=== PATIENT | female | born 1955 | race Caucasian/White ===

== ENCOUNTER 2020-05-26 07:56 | Outpatient (CLI) | payer MEDICARE, OTHER, SELFPAY ==
--- NOTE | ~2020-05-26 | US_ITS ---
EXAMINATION:US venous doppler LE LT INDICATION:Left leg swelling TECHNIQUE: Multiple grayscale, color flow and Doppler images of the left lower extremity deep venous systems were obtained and reviewed. COMPARISON:No prior studies for comparison. FINDINGS: The common femoral, superficial femoral and popliteal veins demonstrate normal respiratory variation, augmentation and compressibility. Color flow is also seen within the posterior tibial, pe roneal, greater saphenous and profunda veins. IMPRESSION: 1: No lower extremity deep venous thrombosis. Reviewed, dictated and finalized at location A. HOUSE MANAGER
== END 2020-05-26 07:57 | disposition home or self-care (01) ==
PROVIDERS: PCP Family Medicine; Visit Provider Family Medicine
DX: M79.89 Other specified soft tissue disorders (principal)
CPT/HCPCS: 93971

== ENCOUNTER 2020-06-06 06:39 | Outpatient (NON) | payer MEDICARE, OTHER, SELFPAY ==
[2020-06-06 19:14] LABS: SARS-CoV-2 RNA PCR Negative
== END 2020-06-06 06:40 ==
LOC: ANHCOVIDDT 06:39
PROVIDERS: PCP Family Medicine; Visit Provider Family Medicine
DX: R09.81 Nasal congestion (principal); R53.83 Other fatigue; Z20.828 Contact with and (suspected) exposure to other viral communicable diseases
CPT/HCPCS: 87635; C9803; U0003

== ENCOUNTER 2022-06-03 10:29 | Outpatient (CLI) | payer MEDICARE, OTHER, SELFPAY ==
--- NOTE | ~2022-06-03 | DEXA_ITS ---
Bone Density Report Name: JEFFREY THOMAS Age: 66 Sex: Female Ethnicity: White Date of : 1955 Indication: postmenopausal; screening for osteoporosis; height loss; Referring Provider: CARSON HUANG Study: Bone densitometry was performed. Exam Date: June 03, 2022 Accession number: [id number] Bone Density: Region BMD T-score Z-score Classification AP Spine(L1-L4) 0.827 -2.0 0.0 Osteopenia Femoral Neck (Left) 0.728 -1.1 0.6 Osteopenia Total Hip (Left) 0.795 -1.2 0.2 Osteopenia Femoral Neck (Right) 0.776 -0.7 1.0 Normal Total Hip (Right) 0.798 -1.2 0.2 Osteopenia Total Hip Mean 0.796 -1.2 0.2 Osteopenia World Health Organization criteria for BMD impression classify patients as: Normal (T-score at or above -1.0), Osteopenia (T-score between -1.0 and -2.5), or Osteoporosis (T-score at or below -2.5). 10-year Fracture Risk(1): Major Osteoporotic Fracture 8.7% Hip Fracture 0.8% Reported Risk Factors: [place] (), Neck BMD=0.728, BMI=28.2 (1) FRAX(R) Version 3.08. Fracture probability calculated for an untreated patient. Fracture probability may be lower if the patient has received treatment. Clinical Information Provided by Patient: Has used the following medications: Vitamin D, Calcium Patient maximum height was 62 Menopause Age: 49 Drinks caffeinated beverages Onset of menses at age 10 Number of children 2 Impression: The patient has low bone mass, based on the Total Spine T-score. The patient has an estimated ten-year risk of hip fracture of 0.8% and an estimated ten-year risk of major fracture of 8.7%, based on the WHO FRAX algorithm. Discussion: BONE DENSITY IS LOW AT ONE OR MORE SKELETAL SITES. This patient's lowest T-score is low at one or more skeletal sites. It meets the World Health Organization's (WHO) criteria for ?low bone mass? (T-score between -1.0 and -2.5). The patient's 10-year risk of fracture as calculated by FRAX is less than the threshold where pharmacological therapy is recommended by the National Osteoporosis Foundation (NOF). However, all treatment decisions require clinical judgment and consideration of individual patient factors, including patient preferences, comorbidities, previous drug use, risk factors not captured in the FRAX model (e.g., frailty, falls, vitamin D deficiency, increased bone turnover, interval significant decline in bone density) and possible under or overestimation of fracture risk by FRAX. The patient should follow a healthful lifestyle (good nutrition with adequate calcium and vitamin D, and appropriate weight-bearing exercise). Follow-Up: Consider repeating this study in 2 to 3 years to reassess this patient's status, or sooner if there is some new clinical indication. Reported by: [facility] on 06/03/2022
== END 2022-06-03 10:30 | disposition home or self-care (01) ==
LOC: ANHIMG 10:30
PROVIDERS: PCP Family Medicine; Visit Provider Physician Assistant
DX: Z78.0 Asymptomatic menopausal state (principal); Z13.820 Encounter for screening for osteoporosis; M85.88 Other specified disorders of bone density and structure, other site; M85.852 Other specified disorders of bone density and structure, left thigh; M85.851 Other specified disorders of bone density and structure, right thigh
CPT/HCPCS: 77080

== ENCOUNTER → 2022-07-21 16:04 | Outpatient (CLI) | payer MEDICARE, OTHER, SELFPAY ==
--- NOTE | ~2022-07-21 | CT_ITS ---
EXAMINATION: CT abdomen pelvis w con DATE: 07/21/2022 16:37 INDICATION: Abdominal pain for 2 to 3 months, worsening. TECHNIQUE: Computed tomography (CT) of the abdomen and pelvis was performed with 100 CC Omnipaque 350 intravenous contrast. Automated exposure control and iterative reconstruction technique were employe d. Exam dose: 661.82 mGy-cm total exam DLP. COMPARISON: None. FINDINGS: There is bronchiectasis the base of the lingula and particularly left lower lobe. Minimal d ependent atelectasis in the lower lung zones. Cardiomegaly. Right ventricular pacemaker lead. No pericardial or pleural effusion. Small sliding hiatal hernia. Diffuse hepatic steatosis. 8 mm hepatic cyst. Probable extremely small lateral segment left hepatic c yst. The gallbladder appears unremarkable. No bile duct or pancreatic duct dilatation. No pancreatic mass lesion or calcification. Normal splenic size. Normal morphology of the adrenal glands. No renal mass lesion probable 3.5 mm left renal cyst. No urinary tract calculus or hydroureteronephro sis is detected. The urinary bladder, uterus and adnexal areas are unremarkable. Normal caliber of the abdominal aorta. No intraperitoneal or retroperitoneal or pelvic mass lesion or adenopathy or ascites is noted. Diverticulosis of the colon; no evidence of diverticulitis. Normal appendix. No bowel obstruction, dusty wel wall thickening, pneumatosis or intraperitoneal free air. Large osteosclerotic lesion of right ilium and small osseous chronic lesions of the proximal right fe mur are likely bone islands. No suspicious osteolytic or osteoblastic lesions are noted otherwise. Small fat-containing umbilical hernia. IMPRESSION: Small sliding hiatal hernia Hepatic steatosis Small hepatic cysts, 3.5 mm left renal cyst Diverticulosis of the colon; no evidence of diverticulitis Normal appendix Reviewed, dictated and finalized at Location A. Reviewed, dictated and finalized at location L. L FLOORING INSTALLER
[2022-07-21 16:28] LABS: Estimated Glomerular Filt Rate > 60
== END ==
PROVIDERS: PCP Family Medicine; Visit Provider Family Medicine
DX: R10.9 Unspecified abdominal pain (principal); R10.2 Pelvic and perineal pain; K44.9 Diaphragmatic hernia without obstruction or gangrene; K76.0 Fatty (change of) liver, not elsewhere classified; K57.30 Diverticulosis of large intestine without perforation or abscess without bleeding
CPT/HCPCS: 74177; Q9967

== ENCOUNTER 2023-05-06 11:21 | Emergency (ER) | payer MEDICARE, OTHER, SELFPAY ==
[2023-05-06 11:30] VITALS: BP 119/58; PULSE 63; RESP 16; TEMP 36.8; O2SAT 98
--- NOTE | 2023-05-06 11:47 | ED.URI ---
HPI - URI/Sore Throat General Chief Complaint: Upper Respiratory Infection Stated Complaint: SINUS CONGESTION Source: patient, family and RN notes reviewed History of Present Illness HPI Narrative: 67 yo F presents to urgent care with visitor at side. Pt states she has been having congestion and ear fullness since Monday. Pt states she can no longer hear out of her left ear. Pt states she felt worse on Monday and started doing [place] Pots on Monday. Denies any fevers, chills, sore throat, N/V/D, chest pain, or SOB. Related Data Home Medications Medication Instructions Recorded Confirmed melatonin 5 mg tablet 2.5 mg PO DAILY 07/20/20 05/06/23 metoprolol tartrate 50 mg tablet 50 mg PO BID 08/27/21 05/06/23 sotalol 80 mg tablet 120 mg PO BID 04/29/22 05/06/23 warfarin 2 mg tablet 2 mg PO DAILY 04/29/22 05/06/23 calcium carbonate 600 mg calcium 600 mg PO BID 07/21/22 05/06/23 (1,500 mg) tablet Allergies Allergy/AdvReac Type Severity Reaction Status Date / Time erythromycin base Allergy Unknown Other Verified 05/06/23 11:31 epinephrine Allergy Other Verified 05/06/23 11:31 cefdinir AdvReac Unknown diarrhea Verified 05/06/23 11:31 Review of Systems Review of Systems: Pertinent positives and pertinent negatives per HPI. [facility] Past Medical History Medical History A-fib Menieres disease MVP (mitral valve prolapse) Pacemaker (~2014) Surgical History Surgical History Heart valve replaced 07/1999 Hx of tonsillectomy (~1961) Family History Family History Mother Diabetes mellitus Father Hypertension Social History Social History Smoking status: Never smoker Alcohol intake: current Alcohol use details: rarely Substance use: never Substance use type: does not use Lack of Transportation: No Lack of Food: Never True Current Housing: I Have Housing Concerned About Future Housing: No Difficulty Paying Gas/Electric Bills: No Difficulty Paying for Meds: No Currently Unemployed: No Education: Bachelor's Degree Difficulty w/ Childcare or Family Care: No Living arrangements: with family Occupation/Education: retired Gender identity (if verbalized by the patient): Female Sexual Orientation (if Verbalized by the Patient): Straight or Heterosexual Agree to blood products: Yes Comments At the time of my signature, I reviewed and agree with the nursing past medical, surgical, social, and family history. There is no relevant family history pertinent to the patient complaint. Exam Narrative: GENERAL: This is a well-nourished, well-developed patient, in no apparent distress. HEAD: normocephalic, atraumatic. EYES: Sclera clear/white. Vision is grossly intact. EARS: External ears normal, Left sided cerumen impaction. Right TMs normal without perforation. Hearing grossly intact. NOSE: External nose normal with no obvious nasal discharge, nares without redness, no rhinorrhea. THROAT: Mucous membranes moist, posterior pharynx clear. NECK: Neck supple, non-tender without lymphadenopathy, masses or thyromegaly. CARDIOVASCULAR: Regular rate and rhythm without murmurs, gallops, or rubs. RESPIRATORY: Clear to auscultation. Breath sounds equal bilaterally. No wheezes, rales, or rhonchi. SKIN: warm, intact with no suspicious lesions or rash, good texture and turgor. NEURO: awake, alert, and oriented to person, place and time. There were no obvious focal neurologic abnormalities. Course Course Level of Care: Express Care Visit Vital Signs Vital signs: Vital Signs Temperature 98.3 F 05/06/23 11:30 Pulse Rate 63 05/06/23 11:30 Respiratory Rate 16 05/06/23 11:30 Blood Pressure 119/58 L 05/06/23 11:30 Pulse Oximetry 98 05/06/23
== END 2023-05-06 12:28 | disposition home or self-care (01) ==
PROVIDERS: Emergency Provider Nurse Practitioner Family; PCP Family Medicine
DX: J06.9 Acute upper respiratory infection, unspecified (principal); H61.22 Impacted cerumen, left ear; I48.91 Unspecified atrial fibrillation; I34.1 Nonrheumatic mitral (valve) prolapse; Z95.0 Presence of cardiac pacemaker; Z79.01 Long term (current) use of anticoagulants; Z95.2 Presence of prosthetic heart valve
CPT/HCPCS: 69209; 99213; A9270; G0463

== ENCOUNTER 2023-07-26 14:11 | Outpatient (CLI) | payer MEDICARE, SELFPAY ==
--- NOTE | 2023-07-26 | ECG_ITS ---
Measurements Intervals Irons Rate: 65 P: 156 MD: 265 QRS: -13 QRSD: 69 T: 24 QT: 421 QTc: 439 Interpretive Statements ELECTRONIC ATRIAL PACEMAKER DELAYED PRECORDIAL R/S TRANSITION LOW QRS VOLTAGE IN PRECORDIAL LEADS BORDERLINE ST-T WAVE ABNORMALITY- DIFFUSE LEADS BORDERLINE ECG NO PREVIOUS ECG AVAILABLE FOR COMPARISON Electronically Signed On 07-26-2023 14:45:54 PARTS SALESMAN by Elder Rodriguez D.O.
== END 2023-07-26 14:12 | disposition home or self-care (01) ==
PROVIDERS: PCP Family Medicine
DX: Z79.899 Other long term (current) drug therapy (principal); R94.31 Abnormal electrocardiogram [ECG] [EKG]
CPT/HCPCS: 93005

== ENCOUNTER 2023-10-04 10:52 | Outpatient (CLI) | payer MEDICARE, SELFPAY | END 2023-10-04 10:53 | disposition home or self-care (01) | LOC: ANHAUDASC 10:53 | PROVIDERS: PCP Family Medicine; Visit Provider Otolaryngology | DX: H90.3 Sensorineural hearing loss, bilateral (principal) | CPT/HCPCS: 92557; 92567 ==

== ENCOUNTER 2024-03-23 08:57 | Emergency (ER) | payer MEDICARE, SELFPAY ==
--- NOTE | 2024-03-23 09:07 | ED.URI ---
HPI - URI/Sore Throat General Chief Complaint: Upper Respiratory Infection Stated Complaint: +Covid, tested positive last night Time Seen by Provider: 03/23/24 09:33 Source: patient and RN notes reviewed Mode of arrival: ambulatory Limitations: no limitations History of Present Illness HPI Narrative: 5-year-old female with history pacemaker and artificial heart valve AFib presents with concern for positive home COVID test. She reports she started having symptoms on , headache, sinus pain. Reports her doctor called her and amoxicillin for a sinus infection yesterday, she took 2 doses and then had a positive COVID test she stop taking the antibiotic. She denies shortness of breath. MD elicited complaint: fever and cough Related Data Home Medications Medication Instructions Recorded Confirmed melatonin 5 mg tablet 2.5 mg PO DAILY 07/20/20 03/22/24 metoprolol tartrate 50 mg tablet 50 mg PO BID 08/27/21 03/22/24 sotalol 80 mg tablet 120 mg PO BID 04/29/22 03/22/24 warfarin 2 mg tablet 2 mg PO DAILY 04/29/22 03/22/24 calcium carbonate 600 mg PO BID 07/21/22 03/22/24 Allergies Allergy/AdvReac Type Severity Reaction Status Date / Time erythromycin base Allergy Unknown Other Verified 03/23/24 09:20 epinephrine Allergy Other Verified 03/23/24 09:20 cefdinir AdvReac Unknown diarrhea Verified 03/23/24 09:20 Review of Systems Review of Systems: CONSTITUTIONAL: Denies malaise, chills, sweats, or fever. EYES: Denies visual changes, redness, or discharge. ENT: Reports rhinorrhea, congestion, sinus pain CARDIOVASCULAR: Denies chest pain, palpitations, or edema. RESPIRATORY: Reports cough. Denies dyspnea. GASTROINTESTINAL: Denies abdominal pain, nausea, vomiting, diarrhea SKIN: Denies rash or itching. MUSCULOSKELETAL: Denies myalgia. NEUROLOGIC: Denies headache. All systems reviewed & are unremarkable except as noted in HPI and below PMFSH Past Medical History Medical History A-fib Menieres disease MVP (mitral valve prolapse) Pacemaker (~2014) Surgical History Surgical History Heart valve replaced 07/1999 Hx of tonsillectomy (~1961) Family History Family History Mother Diabetes mellitus Father Hypertension Social History Social History Smoking status: Never smoker Alcohol intake: current Alcohol use details: rarely Substance use: never Substance use type: does not use Lack of Transportation: No Lack of Food: Never True Current Housing: I Have Housing Concerned About Future Housing: No Difficulty Paying Gas/Electric Bills: No Difficulty Paying for Meds: No Currently Unemployed: No Education: Bachelor's Degree Difficulty w/ Childcare or Family Care: No Living arrangements: with family Occupation/Education: retired Gender identity (if verbalized by the patient): Female Sexual Orientation (if Verbalized by the Patient): Straight or Heterosexual Agree to blood products: Yes Comments At time of signature, agree with nursing past medical, surgical, social and family history. There is no relevant family history pertinent to the presenting complaint Exam Narrative: GENERAL: Well-appearing, well-nourished, and in no acute distress. HEAD: Normocephalic EYES: PERRLA, conjunctivae clear ENT: Nares clear. Mucous membranes moist. TM pearly oliva with dull light reflex bilaterally; no tragal tenderness. Oropharynx not erythematous without lesions. Tonsils not enlarged and without exudate, no drooling, no hoarseness, no trismus, uvula midline. NECK: Supple. No lymphadenopathy CHEST: Clear to auscultation, breath sounds equal. No wheezing, rhonchi, rales, or stridor. No respiratory distress, speaks in full sentences. HEART: Regular rate and rhythm. No murmur heard.
[2024-03-23 09:16] VITALS: BP 128/63; PULSE 78; RESP 16; TEMP 37.6; O2SAT 99
== END 2024-03-23 09:51 | disposition home or self-care (01) ==
PROVIDERS: Emergency Provider Nurse Practitioner; PCP Family Medicine
DX: U07.1 COVID-19 (principal); I48.91 Unspecified atrial fibrillation; I34.1 Nonrheumatic mitral (valve) prolapse; Z95.0 Presence of cardiac pacemaker; Z95.2 Presence of prosthetic heart valve; Z79.01 Long term (current) use of anticoagulants
CPT/HCPCS: 99213; G0463

== ENCOUNTER 2024-07-11 11:34 | Outpatient (CLI) | payer MEDICARE, SELFPAY ==
--- NOTE | 2024-07-11 | ECG_ITS ---
Test Date: 2024-07-11 12:16:37 Measurements Intervals Honor Rate: 69 P: 160 PA: 284 QRS: -15 QRSD: 72 T: -6 QT: 396 QTc: 427 Interpretive Statements ELECTRONIC ATRIAL PACEMAKER LOW QRS VOLTAGE IN PRECORDIAL LEADS [QRS DEFLECTION < 1.0 mV IN CHEST LEADS] NONSPECIFIC T-WAVE ABNORMALITY No previous ECG available for comparison Electronically Signed On 07-12-2024 16:35:32 ENGAGEMENT MANAGER by Brenden Velázquez M.D.
== END 2024-07-11 11:35 | disposition home or self-care (01) ==
PROVIDERS: PCP Family Medicine
DX: Z79.899 Other long term (current) drug therapy (principal); Z95.0 Presence of cardiac pacemaker
CPT/HCPCS: 93005

== ENCOUNTER 2024-10-01 10:59 | Outpatient (CLI) | payer MEDICARE, SELFPAY ==
--- NOTE | ~2024-10-01 | XR_ITS ---
XR chest 2V 10/01/2024 11:19 Indication: Cough Procedure: 2 view chest Comparison: No prior studies for comparison. Findings: Status post median sternotomy. Pacemaker leads are in expected position. There is atheroscl erosis of the aorta. There is a mass in the upper posterior chest on lateral view likely correspondin g to aortic arch, although further evaluation with CT chest recommended to exclude underlying mass or aneurysm. No focal pneumonia, pleural effusion or pneumothorax. 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 Reviewed, dictated and finalized at location A. Impression: 1: Mass in the upper posterior chest on lateral view likely corresponding to ao rtic arch, although further evaluation with CT chest recommended to exclude und erlying mass or aneurysm.
--- OUTSIDE RECORDS SUMMARY | 2024-10-01 12:18 | XMS_ITS | Clinical Summary ---
Author Organization [facility] [employer] Address [address] [place] [address] Care Team Providers Care Home Energy Rater Name Role Phone Unavailable Primary Care Provider Unavailabl e Source Comments [facility] [employer],non-owned Affiliates and Associated Physician Practices is amultiple site organization consisting of ambulatory clinics and hospital sitesin [place], [place], [place] and [place]. This disclosure is being madepursuant to the Care Everywhere program and may not contain all information available regarding this patient. Last updated 18.[facility] [employer] Social History Tobacco Use Types Packs/Day Years Used Date Smoking Tobacco: Never Assessed Sex and Gender Information Value Date Recorded Sex Assigned at Not on file Gender Identity Not on file Sexual Orientation Not on file Plan of Treatment Health Maintenance Due Date Last Done Comments BONE DENSITY TESTING 1955 COLOGUARD (AGES 45-75) - COL ON CA SCREENING 1955 COLON MONITORING 1955 COLONOSCOPY - COLON CA SCREENING 1955 CT COLONOGRAPHY - COLON CA SCREENING 1955 Colorectal Cancer Screening 1955 FIT - COLON CA SCREENING 1955 FLEX SIG - COLON CA SCREENING 1955 LIPID TESTING 1955 MAMMOGRAM 1955 HEPATITIS C SCREENING 12/22/1971 DTAP/TDAP/TD VACCINES (1 - Tdap) 1972 PNEUMOCOCCAL VACCINE 50+ (1 of 1 - PCV) 12/27/2003 ZOSTER VACCINE (1 of 2) 12/27/2003 COVID-19 VACCINE ( - 2023-2 5 season) 2024 INFLUENZA VACCINE (#1) 2024 DEPRESSION SCREENING 07/03/2024 MEDICARE AWV CALENDAR YEAR 2024 Respiratory Syncytial Virus (RSV) Vaccine Pt: or over 60 yrs (1 - 1-dose 75+ series) 2028 HEPATITIS B VACCINE Aged Out No longe r eligible based on patient's age to complete this topic HIB VACCINE Aged Out No longer eligi ble based on patient's age to complete this topic HPV VACCINE Aged Out No longer eligi ble based on patient's age to complete this topic MENINGOCOCCAL (Group B) VACC INE SHARED DECISION-MAKING Aged Out No longer eligibl e based on patient's age to complete this topic MENINGOCOCCAL GROUPS A/C/Y/W VACCINE Aged Out No longer eligible b ased on patient's age to complete this [place] [id number]
--- OUTSIDE RECORDS SUMMARY | 2024-10-01 12:18 | XMS_ITS | Clinical Summary ---
Author Organization [facility] Address [address] [place] [address] Phone Care Team Providers Care Operations Supervisor 2Nd Shift Name Role Phone Provider, Abstract Primary Care Provider Unavail able Allergies Active Allergy Reactions Criticality Noted Date Comments Cefdinir Diarrhea Low 07/28/2022 Epinephrine Other (See Comments) High 09/16/2013 Severe tachycardia Medications simvastatin (ZOCOR) 5 mg tablet Take 5 mg by mouth Daily LATE. Active CALCIUM CITRATE (CITRACAL ORAL)Indications :twice daily Take by mouth. Ac tive sotalol (BETAPACE) 80 mg tablet Take 80 mg by mouth 2 times daily. Active warfarin (COUMADIN) 2 mg tablet Take 2 mg by mouth daily. Active meclizine (ANTIVERT) 12.5 mg tablet Take 1 Tablet (12.5 mg) by mouth 3 times daily as needed for Dizziness. 90 Tablet 1 8 Active metoprolol tartrate (LOPRESSOR) 25 mg tablet Take 50 mg by mouth 2 times daily. Active melatonin 1 mg Tablet Sustained Release Take 3 mg by mouth. Active gabapentin (NEURONTIN) 100 mg capsule 100 mg in the AM and 300 mg at night 1 Active lifitegrast (Xiidra) 5 % Dropperette 2 Drops by Ophthalmic route daily. 2 Active Active Problems Patient Care Coordination No te Formatting of this note migh t be different from the original. Primary Care: Jose L Drummond MD Referring Provider: Jose L Drummond MD [address] [place] [address] Other: Problem Noted Date Diagnosed Date Heart valve problem 10/02/2013 Atypical lobular hyperplasia of breast 4 Overview (10/01/2013): 08/14/13 LEFT breast biopsy - [facility] S/p lumpectomy LCIS Assessment & Plan (10/02/2013 1:18 PM CDT): IOV HTN (hypertension) Heart disorder Hyperlipidemia Irregular heart beat Encounters Date Type Department Care Team Description 09/18/2024 External Device Data [facility] ABSTRACTION Provider, Abstract 09/07/2024 External Device Data [facility] ABSTRACTION Provider, Abstract 09/06/2024 External Device Data [facility] ABSTRACTION Provider, Abstract 09/04/2024 External Device Data [facility] ABSTRACTION Provider, Abstract 08/21/2024 External Device Data [facility] ABSTRACTION Provider, Abstract 07/30/2024 External Device Data [facility] ABSTRACTION Provider, Abstract 07/24/2024 External Device Data [facility] ABSTRACTION Provider, Abstract 07/24/2024 External Device Data [facility] ABSTRACTION Provider, Abstract from Last 3 Months Immunizations Immunization Administration Dates Next Due Influenza Seasonal Unspecified Formulation IM Influenza Vaccine High Dose 65+ Yrs IM 9 Pneumococcal 13-kriss Conj Vacc Patient Supplied 1 Family History Medical History Relation Name Comments Cancer Father Shakir Liver cancer Breast Cancer Maternal Aunt 1 50's Breast Cancer Maternal Aunt 2 Age at Dx u nknown Breast Cancer Maternal Cousin 50's Breast Cancer Mother Lia Heart Disease Mother Lia Breast cancer Colon Cancer Other paternal aunt Healthy Sister takes Evista Celiac Disease Neg Hx Inflammatory Bowel Disease Neg Hx Ovarian Cancer Neg Hx Uterine Cancer Neg Hx Relation Name Status Comments Father Shakir Maternal Aunt 1 Maternal Aunt 2 Maternal Cousin Mother Lia Other Sister Social History Tobacco Use Types Packs/Day Years Used Date Smoking Tobacco: Never Smokeless Tobacco: Never Tobacco Cessation:Counseling Given: Not Answered Alcohol Use Standard Drinks/Week Comments Not Currently 0 (1 standard drink = 0.6 oz pur e alcohol) rare Feeling Safe Answer Date Recorded Are you in a relationship wi th someone who hurts you emotionally and/or physically? 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 Not on file Not on file No t on file Last Filed Vital Signs Vital Sign Reading Time Taken Comments Blood Pressure 118/82 11/07/2023 11:21 AM CDT Pulse 72 11/07/2023 11:21 AM CDT Temperature 36.8 C (98.3 F) 11/07/2023 11:21 AM CDT Respiratory Rate 16 11/07/2023 11:21 AM CDT Oxygen Saturation 98% 11/07/2023 11:21 AM CDT Inhaled Oxygen Concentration - - Weight 65.8 kg (145 lb) 11/07/2023 11:21 AM CDT Height 157.5 cm (5' 2 ) 11/07/2023 11:21 AM CDT Body Mass Index 26.52 11/07/2023 11:21 AM CDT Plan of Treatment Upcoming Encounters Date Type Department Care Team (Late st Contact Info) Description 11/19/2024 11:30 AM CDT Office Visit [facility]-[address] [address] Debora Gipson MD [address] [place] [address] Health Maintenance Due Date Last Done Comments Pre-Diabetes and Diabetes Screening 1955 DTAP/TDAP/TD VACCINES (1 - Tdap) 1972 FIT-DNA Q 3 years 1998 FIT/FOBT Q 1 year 1998 Flex Sig/CT Colonography Q 5 years 1998 ZOSTER VACCINE (1 of 2) 12/27/2003 PNEUMOCOCCAL VACCINE 50+ YEA RS (2 of 2 - PPSV23) 04/17/2020 04/17/2019 INFLUENZA VACCINE (#1) 2024 04/17/2019, 2012 BREAST CANCER SCREENING 06/29/2024 06/29/20 23, 06/29/2023, 03/01/2022, Additional history exists RSV VACCINE (60+ or ) (1 - 1-dose 75+ series) 2028 COLORECTAL SCREENING 07/07/2033 07/07/2023, 07/07/2023, 02/12/2020, Additional history exists Colorectal Cancer Screening 07/07/2033 OSTEOPOROSIS SCREENING Completed 10/13/2014 Medical Devices Implanted Type Area Collection Correspondent Device Identifier Shelf Expiration Date Model / Serial / Lot Medtronic Advisa Dr Mr Greenwood-03/11/20 15 Implanted:Qty: 1 on 03/11/2015 by Munir Richmond MD Pacemaker Chest Wall [employer] ADVISA DR MR [place] / [id number] / Description:MRI conditional pacemaker.....KV 05/23/16 Procedures Procedure Name Priority Date/Time Associated Diagnosis Comments COLONOSCOPY REPORT 07/07/2023 3: 17 PM WATERPROOFER MAMMO 3D BLANCA SCREEN BILAT W OR WO CAD Routine 06/29/2023 12:39 PM WATERPROOFER Atypical lobular hyperplasia of breast Encounter for screening mammogram for malignant neoplasm of breast XR DEXA BONE DENSITY AXIAL 1 OR MORE SITES Routine 10/13/2014 12:07 PM CDT Atypical lobular hyperplasia of breast Asymptomatic postmenopausal status (age-related) (natural) from Last 3 Months or Most Recently Relevant to Health Maintenance Results * COLONOSCOPY REPORT (07/07/2023 3:17 PM WATERPROOFER) Narrative Procedure Note Kg Mcneal MD - 07/07/2023 3:17 PM CST [facility] Endoscopy Patient Name: Concetta Latham Procedure Date: 07/07/2023 Date of : 1955 Attending MD: Kg Mcneal MD, Procedure: Colonoscopy Indications: Diarrhea, elevated fecal calprotectin. last colonsocopy 2019. At that time Fecal calprotectin was initially elevated at 447. Biopsies with non-specific colitis with both active and lymphocytic component. She responded to budesonide. Symtpoms recurred mid 2022. Partial response to budesonide. Fecal calprotectin again elevated 545 Providers: Kg Mcneal MD Referring MD: Abstract Stl Provider Medicines: Monitored Anesthesia Care Complications: No immediate complications. Procedure: Informed consent was obtained for the procedure, including moderate sedation after risks were discussed. Based on the pre-procedure assessment, including review of the patient's medical history, medications, allergies, and review of systems, the patient was deemed to be an appropriate candidate for sedation. A timeout was performed. Continuous ECG monitoring, pulse oximetry, blood pressure monitoring, and direct observation were performed. The Colonoscope was introduced through the anus and advanced to the terminal ileum. The quality of the bowel preparation was excellent. Estimated Blood Loss: Estimated blood loss: none. Findings: The colon mucosa essentially appeared normal. In setting above above colonoscopy indication, there is some question very subtle granularity Biopsies for histology were taken with a cold forceps from the right colon and left colon for evaluation of microscopic colitis. Multiple diverticula were found in the sigmoid colon, descending and transverse colon. External and internal hemorrhoids were found during retroflexion and during perianal exam. The hemorrhoids were moderate. The terminal ileum was examined 20 cm and appeared normal. Impression: - The entire examined colon is normal. Biopsied. - Diverticulosis. - External and internal hemorrhoids. - The examined portion of the ileum was normal. Recommendation: - Await pathology results. - Repeat colonoscopy in 10 years for surveillance pending overall health. - See diverticulosis and hemorrhoid handouts. Kg Mcneal MD 07/07/2023 3:17:18 PM This report has been signed electronically. Number of Addenda: [id number] ; [place] [address] Kg Mcneal MD GI PROCEDURE ORDERABLES Final Result * MAMMO SCRN BILAT 3D BLANCA W OR WO CAD (06/29/2023 12:39 PM WATERPROOFER) Anatomical Region Laterality Modality Breast Bilateral Mammography 06/29/2023 12:4 0 PM WATERPROOFER Impressions 06/29/2023 3:51 PM WATERPROOFER IMPRESSION: 1. No concerning developing abnormality identified. OVERALL FINAL ASSESSMENT: BI-RADS CATEGORY 2: Benign findings RECOMMENDATIONS: 1. Recommend annual mammography. Narrative 06/29/2023 3:51 PM WATERPROOFER BILATERAL SCREENING DIGITAL MAMMOGRAM WITH 3D TOMOSYNTHESIS AND CAD DATE: 06/29/2023 12:39 PM DICTATION LOCATION: [facility] HISTORY: Annual screening mammogram. TECHNIQUE: Standard images of both breasts were obtained on a digital system. 2D and 3D acquisitions were obtained of both breasts. CAD was utilized. COMPARISON: Comparison made to studies dating back to 12/12/2018. BREAST COMPOSITION: There are scattered areas of fibroglandular density. FINDINGS: No concerning dominant masses, suspicious calcifications, parenchymal asymmetry or areas of architectural distortion are identified in either breast. Postoperative changes within the left breast. Procedure Note David Brewer MD - 06/29/2023 BILATERAL SCREENING DIGITAL MAMMOGRAM WITH 3D TOMOSYNTHESIS AND CAD DATE: 06/29/2023 12:39 PM DICTATION LOCATION: [facility] HISTORY: Annual screening mammogram. TECHNIQUE: Standard images of both breasts were obtained on a digital system. 2D and 3D acquisitions were obtained of both breasts. CAD was utilized. COMPARISON: Comparison made to studies dating back to 12/12/2018. BREAST COMPOSITION: There are scattered areas of fibroglandular density. FINDINGS: No concerning dominant masses, suspicious calcifications, parenchymal asymmetry or areas of architectural distortion are identified in either breast. Postoperative changes within the left breast. IMPRESSION: 1. No concerning developing abnormality identified. OVERALL FINAL ASSESSMENT: BI-RADS CATEGORY 2: Benign findings RECOMMENDATIONS: 1. Recommend annual mammography. Debora Gipson MD MAMMO ORDERABLES Final Result * XR DEXA BONE DENSITY AXIAL 1 OR MORE SITES (10/13/2014 12:07 PM CDT) Anatomical Region Laterality Modality Computed Radiogr aphy 10/13/2014 12:0 7 PM CDT Narrative 10/13/2014 12:33 PM CDT XR DEXA BONE DENSITY AXIAL 1 OR MORE SITES Dictated from Location 1 ([facility]) HISTORY: 58 yo F with postmenopausal symptoms on vitamin D supplementation needing evaluation for osteoporosis. PROCEDURE: Using a [employer] dual energy x-ray absorptiometry system, the patient's bone mineral density was measured over the lumbar spine, forearm and femurs. Comparison was made to age and sex matched normal values. FINDINGS: Lumbar Spine (L1-L4) Bone Mineral Density = 0.966 gm/cm2 Compared to young adult (T-score), difference of -1.8 Standard Deviations. The patient's spine BMD is osteopenic when compared to that of a young adult. Left Femoral Neck Bone Mineral Density = 0.901 gm/cm2 Compared to young adult (T-score), difference of -1.0 Standard Deviations. The patient's left femoral neck BMD is normal when compared to that of a young adult. Right Femoral Neck Bone Mineral Density = 0.970 gm/cm2 Compared to young adult (T-score), difference of -0.5 Standard Deviations. The patient's right femoral neck BMD is normal when compared to that of a young adult. Left Radius 33% Bone Mineral Density = 0.741 gm/cm2 Compared to young adult (T-score), difference of -1.5 Standard Deviations. The patient's left Radius 33% BMD is osteopenic when compared to that of a young adult. No prior DEXA studies are available for comparison. Procedure Note Adan Saucedo DO - 10/13/2014 XR DEXA BONE DENSITY AXIAL 1 OR MORE SITES Dictated from Location 1 ([facility]) HISTORY: 58 yo F with postmenopausal symptoms on vitamin D supplementation needing evaluation for osteoporosis. PROCEDURE: Using a [employer] dual energy x-ray absorptiometry system, the patient's bone mineral density was measured over the lumbar spine, forearm and femurs. Comparison was made to age and sex matched normal values. FINDINGS: Lumbar Spine (L1-L4) Bone Mineral Density = 0.966 gm/cm2 Compared to young adult (T-score), difference of -1.8 Standard Deviations. The patient's spine BMD is osteopenic when compared to that of a young adult. Left Femoral Neck Bone Mineral Density = 0.901 gm/cm2 Compared to young adult (T-score), difference of -1.0 Standard Deviations. The patient's left femoral neck BMD is normal when compared to that of a young adult. Right Femoral Neck Bone Mineral Density = 0.970 gm/cm2 Compared to young adult (T-score), difference of -0.5 Standard Deviations. The patient's right femoral neck BMD is normal when compared to that of a young adult. Left Radius 33% Bone Mineral Density = 0.741 gm/cm2 Compared to young adult (T-score), difference of -1.5 Standard Deviations. The patient's left Radius 33% BMD is osteopenic when compared to that of a young adult. No prior DEXA studies are available for comparison. Debora Gipson MD DIAGNOSTIC IMAGING ORDERABLES Final Result from Last 3 Months or Most Recently Relevant to Health Maintenance [id number] M[facility] Advance Directives For more information, please contact: [phone] * Full Code (Latest Code Status on File) Date Activated Date Inactivated Comments 07/07/2023 2:05 PM 07/07/2023 6:01 PM * Full Code Date Activated Date Inactivated Comments 05/15/2019 10:59 AM 05/15/2019 3:04 PM * Full Code Date Activated Date Inactivated Comments 09/17/2013 8:11 AM 09/17/2013 12:01 PM * Full Code Date Activated Date Inactivated Comments 09/17/2013 6:51 AM 09/17/2013 8:11 AM Care Teams Operations Supervisor 2Nd Shift Relationship Specialty Start Date End Date Provider, Abstract NO ADDRESS ON FILE PCP - General 01/23/20
--- OUTSIDE RECORDS SUMMARY | 2024-10-01 12:18 | XMS_ITS | Encounter Summary ---
Author Organization [facility] Address [address] [place] [address] Care Team Providers Care Epic [facility] Name Role Phone Shahla Callejas DO Primary Care Provider + [phone] Rubin Dixon MD Unavailable [phone] Encounter Details Date Type Department Care Team (Late st Contact Info) Description 11/13/2020 Telephone [facility] ([facility]) [address] [place] [id number] Jarrod Luz, RT Social History Tobacco Use Types Packs/Day Years Used Date Smoking Tobacco: Never Smokeless Tobacco: Never Alcohol Use Standard Drinks/Week Comments Yes 0 (1 standard drink = 0.6 oz pur e alcohol) Comments Unknown Sex and Gender Information Value Date Recorded Sex Assigned at Not on file 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
--- OUTSIDE RECORDS SUMMARY | 2024-10-01 12:18 | XMS_ITS | Clinical Summary ---
Author Organization [facility] al Address [address] [place] [address] Care Team Providers Care Lumber Piler Name Role Phone Shahla Callejas DO Primary Care Provider [phone] Rubin Dixon MD Unavailable [phone] Allergies Active Allergy Reactions Criticality Noted Date Comments Cefdinir Nausea only Low 12/18/2017 Epinephrine Palpitations High 09/16/2013 Severe tachycardia Erythromycin Diarrhea,Stomach upset,Nausea & Vomiting Low 04/19/2013 Other Nausea & Vomiting Low 01/26/2023 After multiple surgery; unknown pain pill ([place] or Oxycodone) Medications calcium citrate-vitamin D3 250 mg calcium- 200 unit tabletIndications :Osteoporosis Take 1 tablet by mouth 2 (two) times a day Active meclizine (ANTIVERT) 12.5 mg tabletIndications :Vertigo Take 2 tablets (25 mg total) by mouth nightly Two tabs daily Active melatonin tabletIndications :sleep supplement Take 3 tablets (3 mg total) by mouth nightly Active gabapentin (NEURONTIN) 100 mg capsuleIndication s:Neuropathic Pain Take 1 capsule (100 mg total) by mouth every morning 1 Active Xiidra 5 % dropperetteIndica tions:Tear Film Insufficiency Administer 0.2 each (2 drops total) into both eyes daily 2 Active gabapentin (NEURONTIN) 300 mg capsuleIndication s:Neuropathic Pain Take 1 capsule (300 mg total) by mouth nightly 2 Active simvastatin (ZOCOR) 10 mg tabletIndications :hyperlipidemia Take 1 tablet (10 mg total) by mouth nightly 3 Active sotaloL (BETAPACE) 120 mg tabletIndications :High risk medication use,SSS (sick sinus syndrome) (HCC),Paroxysmal atrial fibrillation (HCC) TAKE 1 TABLET BY MOUTH 2 TIMES A DAY. 180 tablet 5 Active metoprolol tartrate (LOPRESSOR) 50 mg immediate release tablet TAKE 1 TABLET BY MOUTH TWICE A DAY 180 tablet 3 5 Active warfarin (COUMADIN) 2 mg tablet TAKE 1 TABLET BY MOUTH EVERY DAY 90 tablet 2 5 Active Active Problems Problem Noted Date Diagnosed Date Arthritis of foot 02/20/2023 Pacemaker 02/15/2023 History of sinus tachycardia 02/15/2023 PVC's (premature ventricular contractions) 02/15 Right foot pain 01/26/2023 SSS (sick sinus syndrome) 10/26/2022 High risk medication use 03/12/2020 Meniere's disease 02/22/2019 Paroxysmal atrial fibrillation 12/18/2018 Thoracic aortic aneurysm without rupture 018 intermediate designer (current) use of anticoagulants [Z79.0 1] 11/24/2017 S/P AVR (aortic valve replacement) 11/24/2017 History of major vascular surgery 11/14/2012 Overview (10/06/2016): S/P ascending aortic aneurysm repair Hypertension 11/14/2012 Overview (10/07/2016): Hypertension Hyperlipidemia 11/14/2012 Overview (10/06/2016): Hyperlipidemia History of open heart surgery 11/14/2012 Overview (10/07/2016): H/O aortic valve replacement Palpitations 11/14/2012 Overview (10/07/2016): Palpitations Encounters Date Type Department Care Team Description 09/26/2024 Anticoagulation Telephone Call [facility] Cardiology [address] [facility] 8th [place] [address] [place] [address] Rubin Dixon MD retirement (current) use of anticoagulants [Z79.01] (Primary Dx); S/P AVR (aortic valve replacement) 09/26/2024 Orders Only [facility] Scanning, Provider 09/23/[address] [place] [address] Concetta Garcia 09/23/[address] [place] [address] [place] [address] Rubin Dixon MD 09/20/2024 Anticoagulation Telephone Call [address] [place] [address] Rubin Dixon MD retirement (current) use of anticoagulants [Z79.01] (Primary Dx); S/P AVR (aortic valve replacement) 09/20/2024 Orders Only [facility] Scanning, Provider 09/16/2024 Anticoagulation Telephone Call [address] [place] [address] [place] [address] Rubin Dixon MD retirement (current) use of anticoagulants [Z79.01] (Primary Dx); S/P AVR (aortic valve replacement) 09/14/2024 [facility] [address] [place] [address] Marcos Sheppard MD 09/10/2024 Anticoagulation Telephone Call [address] [place] [address] [place] [address] Rubin Dixon MD intermediate designer (current) use of anticoagulants [Z79.01] (Primary Dx); S/P AVR (aortic valve replacement) 09/10/2024 Orders Only [facility] Scanning, Provider 09/05/2024 Anticoagulation Telephone Call [address] [place] [address] Rubin Dixon MD intermediate designer (current) use of anticoagulants [Z79.01] (Primary Dx); S/P AVR (aortic valve replacement) 09/05/2024 Orders Only [facility] Scanning, Provider 08/29/2024 Anticoagulation Telephone Call [address] 8th [place] [address] [place] [address] Rubin Dixon MD intermediate designer (current) use of anticoagulants [Z79.01] (Primary Dx); S/P AVR (aortic valve replacement) 08/29/2024 Orders Only [facility] Scanning, Provider 08/22/2024 Anticoagulation Telephone Call [facility] [address] [facility] [address] [address] Rubin Dixon MD intermediate designer (current) use of anticoagulants [Z79.01] (Primary Dx); S/P AVR (aortic valve replacement) 08/22/2024 Orders Only [facility] Scanning, Provider 08/15/2024 Anticoagulation Telephone Call [address]th [place] [address] [place] [address] Rubin Dixon MD intermediate designer (current) use of anticoagulants [Z79.01] (Primary Dx); S/P AVR (aortic valve replacement) 08/15/2024 Orders Only [facility] Scanning, Provider 08/08/2024 Anticoagulation Telephone Call [address]th [place] [address] [place] [address] Rubin Dixon MD intermediate designer (current) use of anticoagulants [Z79.01] (Primary Dx); S/P AVR (aortic valve replacement) 08/08/2024 Orders Only [facility] Scanning, Provider 08/01/2024 Anticoagulation Telephone Call [facility] Cardiology [address] [place] [address] Medicine 8th [place] [address] [place] [address] Rubin Dixon MD retirement (current) use of anticoagulants [Z79.01] (Primary Dx); S/P AVR (aortic valve replacement) 08/01/2024 Orders Only [facility] Scanning, Provider 07/25/2024 Anticoagulation Telephone Call [address] Medicine 8th [place] [address] [place] [address] Rubin Dixon MD intermediate designer (current) use of anticoagulants [Z79.01] (Primary Dx); S/P AVR (aortic valve replacement) 07/25/2024 Orders Only [facility] Scanning, Provider 07/18/2024 Orders Only [place] [address] [facility] [phone] Munir Richmond MD PhD 07/18/2024 Anticoagulation Telephone Call [address]th [place] [address] [place] [address] Rubin Dixon MD intermediate designer (current) use of anticoagulants [Z79.01] (Primary Dx); S/P AVR (aortic valve replacement) 07/18/2024 Orders Only [facility] Scanning, Provider 07/11/2024 Anticoagulation Telephone Call [address]th [place] [address] [place] [address] Rubin Dixon MD retirement (current) use of anticoagulants [Z79.01] (Primary Dx); S/P AVR (aortic valve replacement) 07/11/2024 Orders Only [facility] Scanning, Provider 07/08/2024 Anticoagulation Telephone Call [address]th [place] [address] [place] [address] Rubin Dixon MD retirement (current) use of anticoagulants [Z79.01] (Primary Dx); S/P AVR (aortic valve replacement) 07/05/2024 Orders Only [facility] Scanning, Provider from Last 3 Months Surgical History Surgery Date Site/Laterality Comments AORTIC VALVE REPLACEMENT 07/03/1999 - 08/02/1999 Aortic Valve Replacement - (Added by TW Conv) FLUORO GUIDED INJECTION ANKLE RIGHT 01/02/2018 Right FLUORO GUIDED ASPIRATION OR INJECTION INTERMEDIATE JOINT RIGHT 03/20/2019 Right FLUORO GUIDED INJECTION ANKLE RIGHT 12/09/2019 Right INSERT / REPLACE / REMOVE PACEMAKER 07/03/2014 - 07/02/2015 FLUORO GUIDED INJECTION ANKLE RIGHT 11/16/2020 Right FLUORO GUIDED INJECTION ANKLE RIGHT 11/09/2021 Right FLUORO GUIDED INJECTION ANKLE RIGHT 07/25/2022 Right FLUORO GUIDED INJECTION ANKLE RIGHT 11/16/2022 Right COLONOSCOPY 2018 2019 TONSILLECTOMY childhood FOOT SURGERY 07/03/2014 - 07/02/2015 Right BREAST BIOPSY 07/03/2013 - 07/02/2014 Left lumpectomy CARDIAC VALVE REPLACEMENT 2000 FLUORO GUIDED INJECTION ANKLE RIGHT 03/14/2024 Right Medical History Medical History Date Comments Aortic stenosis Microscopic colitis Sick sinus syndrome (HCC) Right foot pain Pacemaker 02/15/2023 Heart disease Heart valve disease Family History Medical History Relation Name Comments Hypertension Father Dad Family history of hypertension - (Added by TW Conv)/Family history of hypertension - (Added by TW Conv) Liver cancer Father Dad liver cancer; C ause of : liver cancer Cancer Mother Father Other Mother Father alive; Anesthesia problems Neg Hx Relation Name Status Comments Father Dad (Age 61) Mother Father Alive Social History Tobacco Use Types Packs/Day Years Used Date Smoking Tobacco: Never Smokeless Tobacco: Never Alcohol Use Standard Drinks/Week Comments Yes 0 (1 standard drink = 0.6 oz pur e alcohol) AUDIT-C Answer Date Recorded Q1: How often do you have a drink containing alc ohol? Monthly or less 01/26/2023 Q2: How many drinks containi ng alcohol do you have on a typical day when you are drinking? 1 or 2 01/26/2023 Q3: How often do you have si x or more drinks on one occasion? Never 01/26/2023 Personal Safety Answer Date Recorded Have you ever been in or are you currently in a harmful physical or emotional relationship or is someone making you feel afraid or unsafe? Denies 02/20/2023 Comments Unknown Sex and Gender Information Value Date Recorded Sex Assigned at Not on file Legal Sex Female 2:04 AM PBX WIRE CHIEF Gender Identity Not on file Sexual Orientation Not on file Obstetrics History Last Filed Vital Signs Vital Sign Reading Time Taken Comments Blood Pressure 137/61 03/14/2024 3:19 PM CDT Pulse 78 03/14/2024 3:19 PM CDT Temperature 36.3 C (97.4 F) 02/21/2023 12:27 PM CDT Respiratory Rate 20 03/14/2024 3:19 PM CDT Oxygen Saturation 99% 02/20/2024 11:43 AM CDT Inhaled Oxygen Concentration - - Weight 64.7 kg (142 lb 9.6 oz) 02/20/2024 11:43 AM CDT Height 157.5 cm (5' 2 ) 02/20/2024 11:43 AM CDT Body Mass Index 26.08 02/20/2024 11:43 AM CDT Plan of Treatment Health Maintenance Due Date Last Done Comments Colon Cancer Screening-Colonoscopy 1955 Depression Screening 1955 Hepatitis C Screening 1955 DTaP/Tdap/Td Vaccine (1 - Tdap) 1964 Hepatitis B Screening 12/27/1971 Zoster Vaccine (2 of 3) 06/22/2015 04/27/2015 Osteoporosis Screening-Bone Density Scan 10/13/2016 10/13/2014, 10/13/2014 Well Visit 65+ 2018 Pneumococcal vaccine 65+ (2 of 2 - PPSV23) 06/12/2019 04/17/2019 Fall Risk Assessment 02/22/2024 02/21/2023 Breast Cancer Screening-Mammogram 06/29/2024 06/29/2023, 06/29/2023, 11/20/2017, Additional history exists Influenza Vaccine (Season Ended) 2025 04/17/2019, 03/22/2018, 04/03/2015, Additional history exists Medical Devices Implanted Type Area Ceramic Worker Device Identifier Shelf Expiration Date Model / Serial / Lot Orthohelix Maxtorque 7mm 55mm Cannulated Self Drill Foot Ankle Petite Thread Pop-[id number] - [id number] Implanted:Qty: 1 on 02/20/2023 by Efra Tobin MD at [facility] Screw Right: Foot Orthohelix Cartagenia-010-70 -[id number] / / Pacemaker Heart Figment [id number] Mini Ignite Power Mix Injectable Graft 4ml Synthetic Tissue - [id number] - [id number] Implanted:Qty: 1 on 02/20/2023 by Efra Tobin MD at [facility] Right: Foot Figment 06/29/2027 [id number] / [id number] / [employer] Graft Bone Augment 3cc Allograft Injectable Kit [id number] - [id number] Implanted:Qty: 1 on 02/20/2023 by Efra Tobin MD at [facility] Right: Foot [employer] 04/01/2023 [id number] / / [id number] Explanted Type Area Ceramic Worker Device Identifier Shelf Expiration Date Model / Serial / Lot [employer] Steinmann 3/32mm 9in Trocar Point Pin Fixation Stainless Steel [id number] - [id number] Explanted:Qty: 1 on 02/20/2023 by Efra Tobin MD at [facility] Right: Foot [employer] [id number] / / Procedures Procedure Name Priority Date/Time Associated Diagnosis Comments PROTIME-INR Routine 09/26/2024 SCAN - LABS 09/26/2024 PROTIME-INR Routine 09/20/2024 SCAN - LABS 09/20/2024 PROTIME-INR Routine 09/14/2024 PROTIME-INR Routine 09/10/2024 SCAN - LABS 09/10/2024 PROTIME-INR Routine 09/05/2024 SCAN - LABS 09/05/2024 PROTIME-INR Routine 08/29/2024 SCAN - LABS 08/29/2024 PROTIME-INR Routine 08/22/2024 SCAN - LABS 08/22/2024 PROTIME-INR Routine 08/15/2024 SCAN - LABS 08/15/2024 PROTIME-INR Routine 08/08/2024 SCAN - LABS 08/08/2024 PROTIME-INR Routine 08/01/2024 SCAN - LABS 08/01/2024 PROTIME-INR Routine 07/25/2024 SCAN - LABS 07/25/2024 DEVICE CHECK - REMOTE Routine 07/18/2024 5:55 PM PBX WIRE CHIEF PROTIME-INR Routine 07/18/2024 SCAN - LABS 07/18/2024 PROTIME-INR Routine 07/11/2024 SCAN - LABS 07/11/2024 PROTIME-INR Routine 07/05/2024 SCAN - LABS 07/05/2024 SCREENING MAMMOGRAM Routine 07/17/2013 1 2:12 PM PBX WIRE CHIEF from Last 3 Months or Most Recently Relevant to Health Maintenance Results * SCAN - LABS (09/26/2024) Provider Scanning Final Result * (ABNORMAL) Protime-INR (09/26/2024) INR 2.90(A) 0.90 - 1.10 EXTERNAL LAB Blood Rubin Dixon MD LAB BLOOD ORDERABLES F inal Result Performing Organization Address [facility]/ZIP Co de Phone Number EXTERNAL LAB * SCAN - LABS (09/20/2024) us Provider Scanning Final Result * (ABNORMAL) Protime-INR (09/20/2024) INR 2.00(A) 0.90 - 1.10 EXTERNAL LAB Blood Rubin Dixon MD LAB BLOOD ORDERABLES F inal Result Performing Organization Address [facility]/State/ZIP Co de Phone Number EXTERNAL LAB * (ABNORMAL) Protime-INR (09/14/2024) INR 1.60(A) 0.90 - 1.10 EXTERNAL LAB Blood 09/14/2024 Result [facility] Rubin Dixon MD LAB BLOOD ORDERABLES F inal Result EXTERNAL LAB * SCAN - LABS (09/10/2024) us Provider Scanning Final Result * (ABNORMAL) Protime-INR (09/10/2024) INR 2.80(A) 0.90 - 1.10 EXTERNAL LAB Blood Result [facility] Rubin Dixon MD LAB BLOOD ORDERABLES F inal Result Performing Organization Address [facility] Co de Phone Number EXTERNAL LAB * SCAN - LABS (09/05/2024) Result [facility] Provider Scanning Final Result * (ABNORMAL) Protime-INR (09/05/2024) INR 2.40(A) 0.90 - 1.10 EXTERNAL LAB Blood Result [facility] Rubin Dixon MD LAB BLOOD ORDERABLES F inal Result Performing Organization Address City/[facility] Co de Phone Number EXTERNAL LAB * SCAN - LABS (08/29/2024) us Provider Scanning Final Result * (ABNORMAL) Protime-INR (08/29/2024) INR 2.00(A) 0.90 - 1.10 EXTERNAL LAB Blood Result [facility] Rubin Dixon MD LAB BLOOD ORDERABLES F inal Result EXTERNAL LAB * SCAN - LABS (08/22/2024) us Provider Scanning Final Result * (ABNORMAL) Protime-INR (08/22/2024) INR 2.00(A) 0.90 - 1.10 EXTERNAL LAB Blood 08/22/2024 Rupal Cabello MD LAB BLOOD ORDERABLES Zoraida l Result Performing Organization Address [facility] Co de Phone Number EXTERNAL LAB * SCAN - LABS (08/15/2024) Provider Scanning Final Result * (ABNORMAL) Protime-INR (08/15/2024) INR 2.30(A) 0.90 - 1.10 EXTERNAL LAB Blood Result [facility] Rubin Dixon MD LAB BLOOD ORDERABLES F inal Result Performing Organization Address [facility] de Phone Number EXTERNAL LAB * SCAN - LABS (08/08/2024) Provider Scanning Final Result * (ABNORMAL) Protime-INR (08/08/2024) INR 2.00(A) 0.90 - 1.10 EXTERNAL LAB Blood Result [facility] Rubin Dixon MD LAB BLOOD ORDERABLES F inal Result Performing Organization Address [facility] Co de Phone Number EXTERNAL LAB * SCAN - LABS (08/01/2024) Provider Scanning Final Result * (ABNORMAL) Protime-INR (08/01/2024) INR 2.30(A) 0.90 - 1.10 EXTERNAL LAB Blood Rubin Dixon MD LAB BLOOD ORDERABLES F inal Result EXTERNAL LAB * SCAN - LABS (07/25/2024) Provider Scanning Final Result * (ABNORMAL) Protime-INR (07/25/2024) INR 2.40(A) 0.90 - 1.10 EXTERNAL LAB Blood Rubin Dixon MD LAB BLOOD ORDERABLES F inal Result EXTERNAL LAB * DEVICE CHECK - REMOTE (07/18/2024 5:55 PM PBX WIRE CHIEF) Anatomical Region Laterality Modality Other 07/18/2024 5:55 PM PBX WIRE CHIEF Narrative 07/21/2024 9:41 AM PBX WIRE CHIEF Interpretation Summary: Battery and Leads (BL) Normal parameters noted on battery and lead(s) --- 1.5 yrs (1 to 2 yrs) remaining longevity (implanted 2014). Lead impedance, threshold, and RA sensing trends stable and appropriate. No short V-V intervals. R wave out of range --- R wave 4.3 mV. Trend is stable. RV sensitivity is programmed 1.2 mV. Presenting Rhythm (ME) Atrial Pacing-Ventricular Sensing (AP-VS) --- AP/VS 87 bpm. Arrhythmic events (AE) Atrial High-Rate Episode(s) identified --- Since 04/19/24: One Fast A/V detection, 4 min/45 sec, with EGM appearing to show 1:1 AV rhythm, likely AT/SVT, 158 to 171 bpm. Meds include Sotalol (per Epic list). Anticoagulation (AC) Patient on anticoagulant therapy Patient prescribed Warfarin (Coumadin) Transmission Information (TI) Device Summary Report Follow Up (FU) Patient's primary treating physician will be apprised of findings Procedure Note Munir Richmond MD PhD - 07/21/2024 Interpretation Summary: Battery and Leads (BL) Normal parameters noted on battery and lead(s) --- 1.5 yrs (1 to 2 yrs)remaining longevity (implanted 2014). Lead impedance, threshold, and RAsensing trends stable and appropriate. No short V-V intervals. R wave out of range --- R wave 4.3 mV. Trend is stable. RV sensitivityis programmed 1.2 mV. Presenting Rhythm (ME) Atrial Pacing-Ventricular Sensing (AP-VS) --- AP/VS 87 bpm. Arrhythmic events (AE) Atrial High-Rate Episode(s) identified --- Since 04/19/24: One Fast A/Vdetection, 4 min/45 sec, with EGM appearing to show 1:1 AV rhythm, likelyAT/SVT, 158 to 171 bpm. Meds include Sotalol (per [employer] list). Anticoagulation (AC) Patient on anticoagulant therapy Patient prescribed Warfarin (Coumadin) Transmission Information (TI) Device Summary Report Follow Up (FU) Patient's primary treating physician will be apprised of findings Munir Richmond MD PhD [facility] PROCEDURES Final Result * SCAN - LABS (07/18/2024) us Provider Scanning Final Result * (ABNORMAL) Protime-INR (07/18/2024) INR 2.00(A) 0.90 - 1.10 EXTERNAL LAB Blood Rubin Dixon MD LAB BLOOD ORDERABLES F inal Result EXTERNAL LAB * SCAN - LABS (07/11/2024) us Provider Scanning Final Result * (ABNORMAL) Protime-INR (07/11/2024) INR 2.10(A) 0.90 - 1.10 EXTERNAL LAB Blood Rubin Dixon MD LAB BLOOD ORDERABLES F inal Result EXTERNAL LAB * SCAN - LABS (07/05/2024) us Provider Scanning Final Result * (ABNORMAL) Protime-INR (07/05/2024) INR 2.20(A) 0.90 - 1.10 EXTERNAL LAB Blood 07/05/2024 us Rubin Dixon MD LAB BLOOD ORDERABLES F inal Result EXTERNAL LAB * Screening Mammogram (07/17/2013 12:12 PM PBX WIRE CHIEF) Anatomical Region Laterality Modality Breast N/A Mammography 07/17/2013 12:1 2 PM PBX WIRE CHIEF Narrative 07/18/2013 2:24 PM PBX WIRE CHIEF SEBAS JIMENEZ M.D. FINAL REPORT ACC# Date Time Exam [id number] Jul 17, 2013 12:12:00 [facility] [id number] Screening Mamm Bilat Technologist(s): La Nena Barton; ; EXAMINATION: Mammogram Technique: Bilateral Full-Field Digital Screening Mammogram was performed. Views obtained: bilateral craniocaudal and bilateral mediolateral oblique. Computer Aided Detection was performed with [employer]3 version 9.3. Mammogram Findings: The present examination has been compared to prior imaging studies performed at [facility] on 05/31/2012, 05/16/2011 and 05/06/2010. The breasts are heterogeneously dense which could obscure a lesion on mammography. There are indistinct calcifications with linear distribution in the posterior central area of the left breast. There is no suspicious abnormality in the right breast. IMPRESSION: Calcifications in the left breast require additional evaluation. Additional views are recommended. OVERALL FINAL ASSESSMENT: BI-RADS CATEGORY 0: Incomplete: Need additional imaging evaluation. Requested By: Jose L Drummond M.D. Dictated By: SEBAS JIMENEZ M.D. on Jul 18 2013 2:24P This document has been electronically signed by: SEBAS JIMENEZ M.D. on Jul 18 2013 2:24P Procedure Note Provider, MD Rupal - 10/22/2016 SEBAS JIMENEZ M.D. FINAL REPORT ACC# Date Time Exam [id number] Jul 17, 2013 12:12:00 [facility] [id number] Screening Mamm Bilat Technologist(s): La Nena Barton; ; EXAMINATION: Mammogram Technique: Bilateral Full-Field Digital Screening Mammogram was performed. Views obtained: bilateral craniocaudal and bilateral mediolateral oblique. Computer Aided Detection was performed with [employer] version 9.3. Mammogram Findings: The present examination has been compared to prior imaging studies performed at [facility] on 05/31/2012, 05/16/2011 and 05/06/2010. The breasts are heterogeneously dense which could obscure a lesion on mammography. There are indistinct calcifications with linear distribution in the posterior central area of the left breast. There is no suspicious abnormality in the right breast. IMPRESSION: Calcifications in the left breast require additional evaluation. Additional views are recommended. OVERALL FINAL ASSESSMENT: BI-RADS CATEGORY 0: Incomplete: Need additional imaging evaluation. Requested By: Jose L Drummond M.D. Dictated By: SEBAS JIMENEZ M.D. on Jul 18 2013 2:24P This document has been electronically signed by: SEBAS JIMENEZ M.D. on Jul 18 2013 2:24P Historical Provider MD [facility] MAMMO PROCEDURES Zoraida l Result from Last 3 Months or Most Recently Relevant to Health Maintenance Insurance [facility] MEDICARE [facility] AETNA MEDICARE GOLD AETNA MEDICARE GOLD Advance Directives For more information, please contact: [phone] * Full Code (Latest Code Status on File) Date Activated Date Inactivated Comments 02/20/2023 4:18 PM 02/21/2023 8:51 PM Care Teams Lumber Piler Relationship Specialty Start Date End Date Shahla Callejas DO PCP - General 08/29/19 Rubin Dixon MD [address] [address] Consulting Physician Cardiology 12/27/22
--- OUTSIDE RECORDS SUMMARY | 2024-10-01 12:18 | XMS_ITS | Patient Health Record ---
Author Organization [facility] Address [address] [address] [place] [address] Support Name Relationship Address Phone Concetta Latham Guarantor Unknown [phone] Reason For Referral No Information Plan Of Treatment No Information Insurance Providers Payer Name Payer Address Payer Phone Subscriber Number Group Number Insured Name Patient Relationship to Insured Coverage Start Date Coverage End Date [address] [place] [address] [id number] Concetta Latham Self - patient is the insured 1
--- OUTSIDE RECORDS SUMMARY | 2024-10-01 12:18 | XMS_ITS | Encounter Summary ---
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 Gender Identity Not on file Sexual Orientation Not on file documented as of this encounter Plan of Treatment Not on file documented as of this encounter Procedures Procedure Name Priority Date/Time Associated Diagnosis Comments SCAN - LABS 09/26/2024 documented in this encounter Results * SCAN - LABS (09/26/2024) us Provider Scanning Final Result documented in this encounter Visit Diagnoses Not on filedocumented in this encounter Care Teams Form Setter Steel Pan Forms Relationship Specialty Start Date End Date Shahla Callejas DO PCP - General 08/29/19 [place] [address] [place] [address] Consulting Physician Cardiology 12/27/22 documented as of this encounter
--- OUTSIDE RECORDS SUMMARY | 2024-10-01 12:18 | XMS_ITS | Referral Summary ---
Author Organization [facility] Address [address] [place] [address] Care Team Providers Care Buffet Waiter/Waitress Name Role Phone Shahla Callejas DO Primary Care Provider [phone]- [phone] Rubin Dixon MD Unavailable [phone] Encounters Date Type Department Care Team Description 09/26/2024 Anticoagulation Telephone Call [facility] Cardiology [address] [place] [address] Medicine 8th [place] [address] [place] [address] Rubin Dixon MD custodian manager (current) use of anticoagulants [Z79.01] (Primary Dx); S/P AVR (aortic valve replacement) 09/26/2024 Orders Only [facility] Scanning, Provider 09/23/2024 Telephone [facility] Cardiology Formerly [facility] Medicine 8th [place] [address] [place] [phone] Concetta Garcia 09/23/2024 Telephone [facility] Cardiology [facility] Medicine 8th [place] [address] [place] [phone] Rubin Dixon MD 09/20/2024 Anticoagulation Telephone Call [facility] Cardiology [facility] Medicine 8th [place] [address] [place] [address] Rubin Dixon MD nursing home (current) use of anticoagulants [Z79.01] (Primary Dx); S/P AVR (aortic valve replacement) 09/20/2024 Orders Only [facility] Scanning, Provider 09/16/2024 Anticoagulation Telephone Call [address] Medicine 8th [place] [address] [place] [address] Rubin Dixon MD custodian manager (current) use of anticoagulants [Z79.01] (Primary Dx); S/P AVR (aortic valve replacement) 09/14/2024 Documentation [facility] [address] [place] [address] Marcos Sheppard MD 09/10/2024 Anticoagulation Telephone Call [address] 8th [place] [address] [place] [phone] Rubin Dixon MD nursing home (current) use of anticoagulants [Z79.01] (Primary Dx); S/P AVR (aortic valve replacement) 09/10/2024 Orders Only [facility] Scanning, Provider 09/05/2024 Anticoagulation Telephone Call [address] 8th [place] [address] [place] [phone] Rubin Dixon MD nursing home (current) use of anticoagulants [Z79.01] (Primary Dx); S/P AVR (aortic valve replacement) 09/05/2024 Orders Only [facility] Scanning, Provider 08/29/2024 Anticoagulation Telephone Call [address] Medicine 8th [place] [address] [place] [address] Rubin Dixon MD custodian manager (current) use of anticoagulants [Z79.01] (Primary Dx); S/P AVR (aortic valve replacement) 08/29/2024 Orders Only [facility] Scanning, Provider 08/22/2024 Anticoagulation Telephone Call [facility] Cardiology [address] [facility] Office [address] [place] [address] Rubin Dixon MD custodian manager (current) use of anticoagulants [Z79.01] (Primary Dx); S/P AVR (aortic valve replacement) 08/22/2024 Orders Only [facility] Scanning, Provider 08/15/2024 Anticoagulation Telephone Call [address] 8th [place] [address] [place] [address] Rubin Dixon MD custodian manager (current) use of anticoagulants [Z79.01] (Primary Dx); S/P AVR (aortic valve replacement) 08/15/2024 Orders Only [facility] Scanning, Provider 08/08/2024 Anticoagulation Telephone Call [address] [place] [address] [place] [address] Rubin Dixon MD custodian manager (current) use of anticoagulants [Z79.01] (Primary Dx); S/P AVR (aortic valve replacement) 08/08/2024 Orders Only [facility] Scanning, Provider 08/01/2024 Anticoagulation Telephone Call [address] [place] [address] [place] [address] Rubin Dixon MD custodian manager (current) use of anticoagulants [Z79.01] (Primary Dx); S/P AVR (aortic valve replacement) 08/01/2024 Orders Only [facility] Scanning, Provider 07/25/2024 Anticoagulation Telephone Call [address] [place] [address] [place] [address] Rubin Dixon MD nursing home (current) use of anticoagulants [Z79.01] (Primary Dx); S/P AVR (aortic valve replacement) 07/25/2024 Orders Only [facility] Scanning, Provider 07/18/2024 Orders Only [facility] [address] [facility] [address] [place] [address] Munir Richmond MD PhD 07/18/2024 Anticoagulation Telephone Call [address] [place] [address] [place] [address] Rubin Dixon MD custodian manager (current) use of anticoagulants [Z79.01] (Primary Dx); S/P AVR (aortic valve replacement) 07/18/2024 Orders Only [facility] Scanning, Provider 07/11/2024 Anticoagulation Telephone Call [facility] Cardiology [address] [facility] 8th [place] [address] [place] [phone] Rubin Dixon MD nursing home (current) use of anticoagulants [Z79.01] (Primary Dx); S/P AVR (aortic valve replacement) 07/11/2024 Orders Only [facility] Scanning, Provider 07/08/2024 Anticoagulation Telephone Call [facility] Cardiology [facility] 8th [place] [address] [place] [address] Rubin Dixon MD custodian manager (current) use of anticoagulants [Z79.01] (Primary Dx); S/P AVR (aortic valve replacement) 07/05/2024 Orders Only [facility] Scanning, Provider from Last 3 Months Allergies Active Allergy Reactions Criticality Noted Date Comments Cefdinir Nausea only Low 12/18/2017 Epinephrine Palpitations High 09/16/2013 Severe tachycardia Erythromycin Diarrhea,Stomach upset,Nausea & Vomiting Low 04/19/2013 Other Nausea & Vomiting Low 01/26/2023 After multiple surgery; unknown pain pill (Umpire or Oxycodone) Medications calcium citrate-vitamin D3 250 [...] 12/18/2018 Thoracic aortic aneurysm without rupture 018 nursing home (current) use of anticoagulants [Z79.0 1] 11/24/2017 S/P AVR (aortic valve replacement) 11/24/2017 History of major vascular surgery 11/14/2012 Overview (10/06/2016): S/P ascending aortic aneurysm repair Hypertension 11/14/2012 Overview (10/07/2016): Hypertension Hyperlipidemia 11/14/2012 Overview (10/06/2016): Hyperlipidemia History of open heart surgery 11/14/2012 Overview (10/07/2016): H/O aortic valve replacement Palpitations 11/14/2012 Overview (10/07/2016): Palpitations Social History Tobacco Use Types Packs/Day Years [...] on file Legal Sex Female 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 Gender Identity Not on file Sexual Orientation Not on file Last Filed Vital Signs Vital [...] 02/20/2024 11:43 AM CDT Plan of Treatment Not on file Medical Devices Implanted Type Area Cook Helper Meat Device Identifier Shelf Expiration Date Model / Serial / Lot Orthohelix Maxtorque 7mm 55mm Cannulated Self Drill Foot Ankle Petite Thread [id number] - [id number] Implanted:Qty: 1 on 02/20/2023 by Efra Tobin MD at [facility] Screw Right: Foot Orthohelix [id number] / / Pacemaker Heart Tangerine Power [id number] Mini Ignite Power Mix Injectable Graft 4ml Synthetic Tissue - [id number] - [id number] Implanted:Qty: 1 on 02/20/2023 by Efra Tobin MD at [facility] Right: Foot [employer] 06/29/2027 [id number] / [id number] / Tangerine Power Graft Bone Augment 3cc Allograft Injectable Kit [id number] - [id number] Implanted:Qty: 1 on 02/20/2023 by Efra Tobin MD at [facility] Right: Foot [employer] 04/01/2023 [id number] / / [id number] Explanted Type Area Cook Helper Meat Device Identifier Shelf Expiration Date Model / Serial / Lot [employer] Steinmann 3/32mm 9in Trocar Point Pin Fixation Stainless Steel [id number] - [id number] Explanted:Qty: 1 on 02/20/2023 by Efra Tobin MD at [facility] Right: Foot [employer] [id number] / [...] CHECK - REMOTE Routine 07/18/2024 5:55 PM REAL ESTATE SERVICES ADMINISTRATOR PROTIME-INR Routine 07/18/2024 SCAN - LABS 07/18/2024 PROTIME-INR Routine 07/11/2024 SCAN - LABS 07/11/2024 PROTIME-INR Routine 07/05/2024 SCAN - LABS 07/05/2024 SCREENING MAMMOGRAM Routine 07/17/2013 1 2:12 PM REAL ESTATE SERVICES ADMINISTRATOR from Last 3 Months or Most Recently Relevant to Health Maintenance Results * SCAN - LABS (09/26/2024) Provider Scanning Final Result * (ABNORMAL) Protime-INR (09/26/2024) INR 2.90(A) 0.90 - 1.10 EXTERNAL LAB Blood Rubin Dixon MD LAB BLOOD ORDERABLES F inal Result EXTERNAL LAB * SCAN - LABS (09/20/2024) us Provider Scanning Final Result * (ABNORMAL) Protime-INR (09/20/2024) INR 2.00(A) 0.90 - 1.10 EXTERNAL LAB Blood Rubin Dixon MD LAB BLOOD ORDERABLES F inal Result EXTERNAL LAB * (ABNORMAL) Protime-INR (09/14/2024) INR 1.60(A) 0.90 - 1.10 EXTERNAL LAB Blood 09/14/2024 Result [facility] Rubin Dixon MD LAB BLOOD ORDERABLES F inal Result EXTERNAL LAB * SCAN - LABS (09/10/2024) us Provider Scanning Final Result * (ABNORMAL) Protime-INR (09/10/2024) INR 2.80(A) 0.90 - 1.10 EXTERNAL LAB Blood Result [facility] Rubin Dixon MD LAB BLOOD ORDERABLES F inal Result Performing Organization Address [facility] Co de Phone Number EXTERNAL LAB * SCAN - LABS (09/05/2024) Provider Scanning Final Result * (ABNORMAL) Protime-INR (09/05/2024) INR 2.40(A) 0.90 - 1.10 EXTERNAL LAB Blood Result [facility] Rubin Dixon MD LAB BLOOD ORDERABLES F inal Result Performing Organization Address [facility] Co de Phone Number EXTERNAL LAB * SCAN - LABS (08/29/2024) us Provider Scanning Final Result * (ABNORMAL) Protime-INR (08/29/2024) INR 2.00(A) 0.90 - 1.10 EXTERNAL LAB Blood Result [facility] Rubin Dixon MD LAB BLOOD ORDERABLES F inal Result Performing Organization Address [facility]/ZIP Co de Phone Number EXTERNAL LAB * SCAN - LABS (08/22/2024) us Provider Scanning Final Result * (ABNORMAL) Protime-INR (08/22/2024) INR 2.00(A) 0.90 - 1.10 EXTERNAL LAB Blood 08/22/2024 Rupal Cabello MD LAB BLOOD ORDERABLES Zoraida l Result Performing Organization Address [facility]/ZIP Co de Phone Number EXTERNAL LAB * SCAN - LABS (08/15/2024) Provider Scanning Final Result * (ABNORMAL) Protime-INR (08/15/2024) INR 2.30(A) 0.90 - 1.10 EXTERNAL LAB Blood Rubin Dixon MD LAB BLOOD ORDERABLES F inal Result Performing Organization Address [facility] Co de Phone Number EXTERNAL LAB * SCAN - LABS (08/08/2024) Provider Scanning Final Result * (ABNORMAL) Protime-INR (08/08/2024) INR 2.00(A) 0.90 - 1.10 EXTERNAL LAB Blood Result [facility] Rubin Dixon MD LAB BLOOD ORDERABLES F inal Result Performing Organization Address [facility]/ZIP Co de Phone Number EXTERNAL LAB * SCAN - LABS (08/01/2024) Provider Scanning Final Result * (ABNORMAL) Protime-INR (08/01/2024) INR 2.30(A) 0.90 - 1.10 EXTERNAL LAB Blood Rubin Dixon MD LAB BLOOD ORDERABLES F inal Result Performing Organization Address [facility]/ZIP Co de Phone Number EXTERNAL LAB * SCAN - LABS (07/25/2024) us Provider Scanning Final Result * (ABNORMAL) Protime-INR (07/25/2024) INR 2.40(A) 0.90 - 1.10 EXTERNAL LAB Blood Rubin Dixon MD LAB BLOOD ORDERABLES F inal Result EXTERNAL LAB * DEVICE CHECK - REMOTE (07/18/2024 5:55 PM REAL ESTATE SERVICES ADMINISTRATOR) Anatomical Region Laterality Modality Other 07/18/2024 5:55 PM REAL ESTATE SERVICES ADMINISTRATOR Narrative 07/21/2024 9:41 AM REAL ESTATE SERVICES ADMINISTRATOR Interpretation Summary: Battery and Leads (BL) Normal parameters noted on battery and lead(s) --- 1.5 yrs (1 to 2 yrs) remaining longevity (implanted 2014). Lead impedance, threshold, and RA sensing trends stable and appropriate. No short V-V intervals. R wave out of range --- R wave 4.3 mV. Trend is stable. RV sensitivity is programmed 1.2 mV. Presenting Rhythm (MS) Atrial Pacing-Ventricular Sensing (AP-VS) --- AP/VS 87 [...] RV sensitivityis programmed 1.2 mV. Presenting Rhythm (MS) Atrial Pacing-Ventricular Sensing (AP-VS) --- AP/VS 87 bpm. Arrhythmic events (AE) Atrial High-Rate Episode(s) identified --- Since 04/19/24: One Fast A/Vdetection, 4 min/45 sec, with EGM appearing to show 1:1 AV rhythm, likelyAT/SVT, 158 to 171 bpm. Meds include Sotalol (per [employer] Bill list). Anticoagulation (AC) Patient on anticoagulant therapy Patient prescribed Warfarin (Coumadin) Transmission Information (TI) Device Summary Report Follow Up (FU) Patient's primary treating physician will be apprised of findings Munir Richmond MD PhD CV CARDIAC SERVICES PROCEDURES Final Result * SCAN - LABS (07/18/2024) us Provider Scanning Final Result * (ABNORMAL) Protime-INR (07/18/2024) INR 2.00(A) 0.90 - 1.10 EXTERNAL LAB Blood us Rubin Dixon MD LAB BLOOD ORDERABLES F inal Result EXTERNAL LAB * SCAN - LABS (07/11/2024) us Provider Scanning Final Result * (ABNORMAL) Protime-INR (07/11/2024) INR 2.10(A) 0.90 - 1.10 EXTERNAL LAB Blood us Rubin Dixon MD LAB BLOOD ORDERABLES F inal Result EXTERNAL LAB * SCAN - LABS (07/05/2024) us Provider Scanning Final Result * (ABNORMAL) Protime-INR (07/05/2024) INR 2.20(A) 0.90 - 1.10 EXTERNAL LAB Blood 07/05/2024 Rubin Dixon MD LAB BLOOD ORDERABLES F inal Result EXTERNAL LAB * Screening Mammogram (07/17/2013 12:12 PM REAL ESTATE SERVICES ADMINISTRATOR) Anatomical Region Laterality Modality Breast N/A Mammography 07/17/2013 12:1 2 PM REAL ESTATE SERVICES ADMINISTRATOR Narrative 07/18/2013 2:24 PM REAL ESTATE SERVICES ADMINISTRATOR SEBAS JIMENEZ M.D. FINAL REPORT ACC# Date Time Exam [id number] Jul 17, 2013 12:12:00 [facility] EMERGENCY DEPARTMENT [id number] Screening Mamm Bilat Technologist(s): La Nena Barton; ; EXAMINATION: Mammogram Technique: Bilateral Full-Field Digital Screening Mammogram was performed. Views obtained: bilateral craniocaudal and bilateral mediolateral oblique. Computer Aided Detection was performed with Emergent Discovery.3 version 9.3. Mammogram Findings: The present examination has been compared to prior imaging studies performed at [facility] on 05/31/2012, 05/16/2011 and 05/06/2010. The [...] M.D. FINAL REPORT ACC# Date Time Exam [id number] Jul 17, 2013 12:12:00 [facility] EM[facility]GENCY DEPARTMENT [id number] Screening Mamm Bilat Technologist(s): La Nena Barton; ; EXAMINATION: Mammogram Technique: Bilateral Full-Field Digital Screening Mammogram was performed. Views obtained: bilateral craniocaudal and bilateral mediolateral oblique. Computer Aided Detection was performed with Emergent Discovery.3 version 9.3. Mammogram Findings: The present examination has been compared to prior imaging studies performed at [facility] on 05/31/2012, 05/16/2011 and 05/06/2010. The [...] Most Recently Relevant to Health Maintenance Insurance [facility] MEDICARE [facility] AETNA MEDICARE GOLD AETNA MEDICARE GOLD Advance Directives For more information, please contact: [phone] * Full Code (Latest Code Status on File) Date Activated Date Inactivated Comments 02/20/2023 4:18 PM 02/21/2023 8:51 PM Care Teams Buffet Waiter/Waitress Relationship Specialty Start Date End Date Shahla Callejas DO PCP - General 08/29/19 Rubin Dixon MD [address] [address] Consulting Physician Cardiology 12/27/22
--- OUTSIDE RECORDS SUMMARY | 2024-10-01 12:18 | XMS_ITS | Encounter Summary ---
Author Organization [facility] Address [address] [place] [address] Phone Care Team Providers Care Coder Name Role Phone Jose L Drummond MD Primary Care Provider [phone] Oscar Barnes MD Primary Care Provider [phone] Jose L Drummond MD Primary Care Provider [phone] Jose L Drummond MD Primary Care Provider [phone] Oscar Barnes MD Primary Care Provider [phone] Jose L Drummond MD Primary Care Provider [phone] Jose L Drummond MD Primary Care Provider [phone] Oscar Barnes MD Primary Care Provider Jose L Drummond MD Primary Care Provider [phone] Jose L Drummond MD Primary Care Provider [phone] Oscar Barnes MD Primary Care Provider Jose L Drummond MD Primary Care Provider [phone] Shahla Callejas DO Primary Care Provider + [phone] Rubin Dixon MD Unavailable [phone] Encounter Details Date Type Department Care Team (Late st Contact Info) Description 01/13/2016 Orders Only [facility] Provider, MD Rupal [address] [place], [place] [id number] Social History Tobacco Use Types Packs/Day Years Used Date Smoking Tobacco: Never Assessed Alcohol Use Standard Drinks/Week Comments Yes 0 (1 standard drink = 0.6 oz pur e alcohol) Comments Unknown Sex and Gender Information Value Date Recorded Sex Assigned at Not on file 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 [facility] Provider CV CARDIAC SERVICES PROCE DURES Final Result * CARDIOLOGY REPORT (01/13/2016) Anatomical Region Laterality Modality Other Narrative 01/13/2016 Ordered by an unspecified provider. [facility] Provider CV CARDIAC SERVICES PROCE DURES Final Result documented in this encounter Visit Diagnoses Not on filedocumented in this encounter Care Teams Coder Relationship Specialty Start Date End Date Jose L Drummond MD [address] [place] [address] PCP - General 12/21/11 11/02/16 Oscar Barnes MD [address] [place] [address] PCP - General 11/03/16 11/14/16 Jose L Drummond MD [address] [place] [address] PCP - General 11/15/16 12/05/16 Jose L Drummond MD [address] [place], [place] [id number] PCP - General 12/06/16 12/06/16 Oscar Barnes MD [address] [place], [place] [id number] PCP - General 12/07/16 12/19/16 Jose L Drummond MD [address] [place], [place] [id number] PCP - General 12/20/16 03/01/17 Jose L Drummond MD [address] [place] [address] PCP - General 03/02/17 03/02/17 Oscar Barnes MD [address] [place] [address] PCP - General 03/03/17 03/08/17 Jose L Drummond MD [address] [place] [address] PCP - General 03/09/17 03/26/17 Jose L Drummond MD [address] [place], [place] [id number] PCP - General 03/27/17 03/27/17 Oscar Barnes MD [address] [place] [address] PCP - General 03/28/17 04/16/17 Jose L Drummond MD [address] [place] [address] PCP - General 04/17/17 08/28/19 Shahla Callejas DO [address] [place] [address] PCP - General 08/29/19 Rubin Dixon MD [address] [address] Consulting Physician Cardiology 12/27/22 documented as of this encounter
--- OUTSIDE RECORDS SUMMARY | 2024-10-01 12:18 | XMS_ITS ---
Author Organization [facility] Address [address] [facility] [address] [place] [address] Care Team Providers Care Forestry Tree Pruner Name Role Phone zzzzMigration, zzzzProvider Unavailable Unav ailable REASON FOR VISIT EMR-Lalito Encounters Encounter Location Date Provider Diagnosis [facility] [address] [facility] [address] [place] [address] 04/23/2023 zzzzProvider zzzzMigration Plan Of Treatment No Information Progress Notes * Concetta THOMAS LDOB:[birth year] (68 yo F)Acc No.[id number]:04/23/2023 Patient: Mateus LLOYDheron Alcantara :1955 A ge:67 Y S ex:Female Address:[address] [place] [address], [address] Subjective: * Chief Complaints: * E MR-Lalito * Medical History: * Surgical History: * Hospitalization/Major Diagno stic Procedure: * Medications: Objective: * Vitals: * Physical Examination: Assessment: Plan: * Treatment: * Procedure Codes: * true * Date: Generated for Printi ng/Faxing/eTransmitting on: 0 10/01/2024 12:17 PM CDT
--- OUTSIDE RECORDS SUMMARY | 2024-10-01 12:18 | XMS_ITS | Encounter Summary ---
Author Organization [facility] Address [address] [place] [address] Phone Care Team Providers Care Special Effects Technician Name Role Phone Shahla Callejas DO Primary Care Provider [phone] Rubin Dixon MD Unavailable [phone] Reason for Visit * Reason Onset Date Comments Anticoagulation 09/26/2024 Encounter Details Date Type Department Care Team (Latest Contact Info) Description 09/26/2024 Anticoagulation Telephone Call [facility] Cardiology [address] [facility] Advanced [facility] 8th [place] [address] [place] [address] Rubin Dixon MD [address] [facility] [address] [place] [address] snf (current) use of anticoagulants [Z79.01] (Primary Dx); S/P AVR (aortic valve replacement) Social History Tobacco Use Types Packs/Day Years [...] on file 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 Started on Albuterol inhaler today, Monday the for cough. * Telephone Encounter - Rubin Dixon MD - 09/26/2024 1:43 PM CDT agree * Telephone Encounter - Wendy Swenson RN - 09/26/2024 12:41 PM CDT 09/20- on 2mg 09/26- 2.90 on 2 mg has 2 days left of Prednisone - no antibiotics Stay on 2 mg 1 week documented in this encounter Plan of Treatment Not on file documented as of this encounter Procedures Procedure Name Priority Date/Time Associated Diagnosis Comments PROTIME-INR Routine 09/26/2024 documented in this encounter Results * (ABNORMAL) Protime-INR (09/26/2024) INR 2.90(A) 0.90 - 1.10 EXTERNAL LAB Blood us Rubin Dixon MD LAB BLOOD ORDERABLES F inal Result EXTERNAL LAB documented in this encounter Visit Diagnoses Diagnosis snf (current) use of anticoagulants [Z79.01]- Primary Long-term (current) use of anticoagulants S/P AVR (aortic valve replacement) Heart valve replaced by other means documented in this encounter Care Teams Special Effects Technician Relationship Specialty Start Date End Date Shahla Callejas DO PCP - General 08/29/19 [place] [address] [place] [address] Consulting Physician Cardiology 12/27/22 documented as of this encounter
--- OUTSIDE RECORDS SUMMARY | 2024-10-01 12:18 | XMS_ITS | Encounter Summary ---
Author Organization [facility] Address [address] [place] [address] Phone Care Team Providers Care Associate Merchandiser Name Role Phone Jose L Drummond MD Primary Care Provider + [phone] Jose L Drummond MD Primary Care Provider + [phone] Oscar Barnes MD Primary Care Provider [phone] Jose L Drummond MD Primary Care Provider + [phone] Jose L Drummond MD Primary Care Provider + [phone] Oscar Barnes MD Primary Care Provider [phone] Jose L Drummond MD Primary Care Provider + [phone] Shahla Callejas DO Primary Care Provider + [phone] Rubin Dixon MD Unavailable [phone] Encounter Details Date Type Department Care Team (Late st Contact Info) Description 02/22/2017 Orders Only [facility] Provider, MD Rupal [address] [place] [address] Social History Tobacco Use Types Packs/Day Years Used Date Smoking Tobacco: Never Assessed Alcohol Use Standard Drinks/Week Comments Yes 0 (1 standard drink = 0.6 oz pur e alcohol) Comments Unknown Sex and Gender Information Value Date Recorded Sex Assigned at Not on file 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 Historical Provider [facility] CARDIAC SERVICES TIM VARGAS Final Result documented in this encounter Visit Diagnoses Not on filedocumented in this encounter Care Teams Associate Merchandiser Relationship Specialty Start Date End Date Jose L Drummond MD [address] [place], [place] [id number] PCP - General 12/20/16 03/01/17 Jose L Drummond MD [address] [place] [address] PCP - General 03/02/17 03/02/17 Oscar Barnes MD [address] [place] [address] PCP - General 03/03/17 03/08/17 Jose L Drummond MD [address] [place] [address] PCP - General 03/09/17 03/26/17 Jose L Drummond MD [address] [place] [address] PCP - General 03/27/17 03/27/17 Oscar Barnes MD [address] [place], [place] [id number] PCP - General 03/28/17 04/16/17 Jose L Drummond MD [address] [place] [id number] PCP - General 04/17/17 08/28/19 Shahla Callejas DO [address] [place] [address] PCP - General 08/29/19 Rubin Dixon MD [address] [place] [address] Consulting Physician Cardiology 12/27/22 documented as of this encounter
--- OUTSIDE RECORDS SUMMARY | 2024-10-01 12:18 | XMS_ITS | Encounter Summary ---
Author Organization [facility] Address [address] [facility] [place] [address] Care Team Providers Care Riffler Tender Name Role Phone Unavailable Primary Care Provider Unavailabl e Encounter Details Date Type Department Care Team (Late st Contact Info) Description 02/19/2024 Lab Requisition [facility] Derm[facility] Lab [address] [facility], [place] [address] Renetta Hopper MD [address] [facility] 3 [place] [address] Social History Tobacco Use Types Packs/Day Years Used Date Smoking Tobacco: Never Assessed Sex and Gender Information Value Date Recorded Sex Assigned at Not on file Gender Identity Not on file Sexual Orientation Not on file documented as of this encounter Plan of Treatment Not on file documented as of this encounter Procedures Procedure Name Priority Date/Time Associated Diagnosis Comments DERMATOPATHOLOGY Routine 02/19/2024 1:25 PM CDT documented in this encounter Results * DERMATOPATHOLOGY (02/19/2024 1:25 PM CDT) Case Report Dermatopathology Report Case: [id number] Authorizing Provider: Renetta Hopper MD Collected: 02/19/2024 01:25 PM Ordering Location: [facility] - Received: 02/20/2024 11:37 AM DermPath Lab Pathologist: Janie Roberto MD Specimen: Skin, left medial cheek 4 3:35 PM CDT DERMATOPATHOLOGY LABORATORY Final Diagnosis Specimen A. SKIN, left medial cheek: BASAL CELL CARCINOMA, INFILTRATIVE PATTERN (C44.319) (see microscopic description) 4 3:35 PM CDT DERMATOPATHOLOGY LABORATORY Clinical History R/O BCC 4 3:35 PM CDT DERMATOPATHOLOGY LABORATORY Gross Description Specimen A: Received is one formalin filled container labeled with the patient's name and designated left medial cheek. The specimen consists of a shave biopsy measuring 3x2x1 mm. Jar 0. 3:35 PM T DERMATOPATHOLOGY LABORATORY Microscopic Description Specimen A. SKIN, left medial cheek: Within the dermis there are nodular aggregates of basaloid cells associated with fibromyxoid stroma and epithelial-stromal clefts. At the advancing margin of the neoplasm, there are smaller angulated nests that infiltrate the dermis. Additional deeper sections were obtained and reviewed. 3:35 PM T DERMATOPATHOLOGY LABORATORY Disclaimer An external and internal positive and negative controls are appropriate for the histochemical, immunohistochemical and immunofluorescence stain(s) in this case (if any), except where stated explicitly. The performance characteristics of the stain(s) cited in this report were developed and its performance characteristic determined by the Dermatopathology Laboratory at [facility], directed by Dr. Armond Majano. These tests need not be, and therefore are not, approved by the [place] Food and Drug Administration. The tests are used for clinical purposes. Billing Codes Specimen Charges Stain Charges 63026 1 4 3:35 PM CDT DERMATOPATHOLOGY LABORATORY Embedded Images 3:35 PM T DERMATOPATHOLOGY LABORATORY Pathology/Cytolo gy TISSUE SPECIMEN FROM SKIN / Unknown 02/19/2024 1:25 PM CDT 02/20/2024 11:37 AM CDT Renetta Hopper MD LAB - PATHOLOGY/CYTO LOGY ORDERABLES DERMATOPATHOLOGY LABORATORY [facility] - Department of Dermatology [address], [address] [phone] documented in this encounter Visit Diagnoses Not on filedocumented in this encounter
--- OUTSIDE RECORDS SUMMARY | 2024-10-01 12:18 | XMS_ITS ---
Author Organization [facility] Address [address] [facility] [facility] [address] [place] [address] Care Team Providers Care Archeologist Name Role Phone zzzzMigration, zzzzProvider Unavailable Unav ailable REASON FOR VISIT EMR-Lalito Encounters Encounter Location Date Provider Diagnosis [facility] [address] [facility] [address] [place] [address] 04/22/2023 zzzzProvider zzzzMigration Plan Of Treatment No Information Progress Notes * Concetta THOMAS LDOB:[birth year] (68 yo F)Acc No.[id number]:04/22/2023 Patient: Mateus LLOYDheron Alcantara :1955 A ge:67 Y S ex:Female Address:[address] [place] [address], [address] Subjective: * Chief Complaints: * E MR-Lalito * Medical History: * Surgical History: * Hospitalization/Major Diagno stic Procedure: * Medications: Objective: * Vitals: * Physical Examination: Assessment: Plan: * Treatment: * Procedure Codes: * true * Date: Generated for Printi ng/Faxing/eTransmitting on: 0 10/01/2024 12:18 PM CDT
--- OUTSIDE RECORDS SUMMARY | 2024-10-01 12:18 | XMS_ITS | Encounter Summary ---
Author Organization [facility] Address [address] [place] [address] Phone Care Team Providers Care Glass Smoother Name Role Phone Jose L Drummond MD Primary Care Provider + [phone] Shahla Callejas DO Primary Care Provider + [phone] Rubin Dixon MD Unavailable [phone] Encounter Details Date Type Department Care Team (Late st Contact Info) Description 10/25/2017 Orders Only [facility] Provider, MD Rupal [address] [place] [address] Social History Tobacco Use Types Packs/Day Years Used Date Smoking Tobacco: Never Alcohol Use Standard Drinks/Week Comments Yes 0 (1 standard drink = 0.6 oz pur e alcohol) Comments Unknown Sex and Gender Information Value Date Recorded Sex Assigned at Not on file Legal Sex 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 us Historical Provider [facility] CARDIAC SERVICES PROCE DURES Final Result * CARDIOLOGY REPORT (10/25/2017) Anatomical Region Laterality Modality Other Narrative 10/25/2017 Ordered by an unspecified provider. us Historical Provider CV CARDIAC SERVICES PROCE DURES Final Result documented in this encounter Visit Diagnoses Not on filedocumented in this encounter Care Teams Glass Smoother Relationship Specialty Start Date End Date Jose L Drummond MD [address] [place] [address] PCP - General 04/17/17 08/28/19 Shahla Callejas DO [address] [place] [address] PCP - General 08/29/19 Rubin Dixon MD [address] [address] Consulting Physician Cardiology 12/27/22 documented as of this encounter
--- OUTSIDE RECORDS SUMMARY | 2024-10-01 12:18 | XMS_ITS | Encounter Summary ---
Author Organization [facility] [place] [facility] Address [address] [place] [address] Phone Care Team Providers Care Corporate Safety Coordinator Name Role Phone Jose L Drummond MD Primary Care Provider [phone] Oscar Barnes MD Primary Care Provider Jose L Drummond MD Primary Care Provider [phone] Jose L Drummond MD Primary Care Provider + [phone] Oscar Barnes MD Primary Care Provider [phone] Jose L Drummond MD Primary Care Provider [phone] Jose L Drummond MD Primary Care Provider [phone] Oscar Barnes MD Primary Care Provider [phone] Jose L Drummond MD Primary Care Provider [phone] Jose L Drummond MD Primary Care Provider + [phone] Oscar Barnes MD Primary Care Provider [phone] Jose L Drummond MD Primary Care Provider + [phone] Shahla Callejas DO Primary Care Provider + [phone] Rubin Dixon MD Unavailable [phone] Encounter Details Date Type Department Care Team (Late st Contact Info) Description 07/15/2015 Orders Only [facility] Provider, MD Rupal [address] [place], [place] [id number] Social History Tobacco Use Types Packs/Day Years Used Date Smoking Tobacco: Never Assessed Alcohol Use Standard Drinks/Week Comments Yes 0 (1 standard drink = 0.6 oz pur e alcohol) Comments Unknown Sex and Gender Information Value Date Recorded Sex Assigned at Not on file Legal Sex 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 Historical Provider [facility] CARDIAC SERVICES TIM VARGAS Final Result documented in this encounter Visit Diagnoses Not on filedocumented in this encounter Care Teams Corporate Safety Coordinator Relationship Specialty Start Date End Date Jose L Drummond MD [address] [place] [address] PCP - General 12/21/11 11/02/16 Oscar Barnes MD [address] [place] [address] PCP - General 11/03/16 11/14/16 Jose L Drummond MD [address] [place] [address] PCP - General 11/15/16 12/05/16 Jose L Drummond MD [address] [place] [address] PCP - General 12/06/16 12/06/16 Oscar Barnes MD [address] [place], [place] [id number] PCP - General 12/07/16 12/19/16 Jose L Drummond MD [address] [place], [place] [address] PCP - General 12/20/16 03/01/17 Jose L Drummond MD [address] [place], [place] [id number] PCP - General 03/02/17 03/02/17 Oscar Barnes MD [address] [place], [place] [address] PCP - General 03/03/17 03/08/17 Jose L Drummond MD [address] [place], [place] [address] PCP - General 03/09/17 03/26/17 Jose L Drummond MD [address] [place], [place] [id number] PCP - General 03/27/17 03/27/17 Oscar Barnes MD [address] [place], [place] [id number] PCP - General 03/28/17 04/16/17 Jose L Drummond MD [address] [place], [place] [address] PCP - General 04/17/17 08/28/19 Shahla Callejas DO [address] [place] [address] PCP - General 08/29/19 Rubin Dixon MD [address] [address] Consulting Physician Cardiology 12/27/22 documented as of this encounter
--- OUTSIDE RECORDS SUMMARY | 2024-10-01 12:18 | XMS_ITS | Encounter Summary ---
Author Organization [facility] Address [address] [facility] [place] [address] Care Team Providers Care Self Propelled Hot Mix Roller Operator Name Role Phone Unavailable Primary Care Provider Unavailabl e Encounter Details Date Type Department Care Team (Late st Contact Info) Description 07/11/2023 Lab Requisition [facility] - DermPath Lab [address] [facility], [place] [address] Renetta Hopper MD [address] [facility] 3 [place] [address] Social History Tobacco Use Types Packs/Day Years Used Date Smoking Tobacco: Never Assessed Sex and Gender Information Value Date Recorded Sex Assigned at Not on file Gender Identity Not on file Sexual Orientation Not on file documented as of this encounter Plan of Treatment Not on file documented as of this encounter Procedures Procedure Name Priority Date/Time Associated Diagnosis Comments DERMATOPATHOLOGY Routine 07/11/2023 11:1 9 AM CHAIR LIFT OPERATOR documented in this encounter Results * DERMATOPATHOLOGY (07/11/2023 11:19 AM CHAIR LIFT OPERATOR) Case Report Dermatopathology Report Case: [id number] Authorizing Provider: Renetta Hopper MD Collected: 07/11/2023 11:19 AM Ordering Location: [facility] DermPath Lab Received: 07/11/2023 03:09 PM Pathologist: Evens Majano MD Specimen: Skin, right swenson 4 1:57 PM CHAIR LIFT OPERATOR DERMATOPATHOLOGY LABORATORY Final Diagnosis Specimen A. SKIN, right swenson: BASAL CELL CARCINOMA, SUPERFICIAL MULTIFOCAL (C44.712) 4 1:57 PM CHAIR LIFT OPERATOR DERMATOPATHOLOGY LABORATORY Clinical History R/O BCC [place] Papule 4 1:57 PM CHAIR LIFT OPERATOR DERMATOPATHOLOGY LABORATORY Gross Description Specimen A: Received is one formalin filled container labeled with the patient's name and designated right swenson. The specimen consists of a shave biopsy measuring 5x4x1 mm. Jar 0. 4 1:57 PM [facility] DERMATOPATHOLOGY LABORATORY Microscopic Description Specimen A. SKIN, right swenson: Attached to the undersurface of the epidermis, there are small aggregates of basaloid cells with a high nuclear to cytoplasmic ratio and peripheral palisading. 4 1:57 PM [facility] DERMATOPATHOLOGY LABORATORY Disclaimer An external and internal positive and negative controls are appropriate for the histochemical, immunohistochemical and immunofluorescence stain(s) in this case (if any), except where stated explicitly. The performance characteristics of the stain(s) cited in this report were developed and its performance characteristic determined by the Dermatopathology Laboratory at [facility], directed by Dr. Armond Majano. These tests need not be, and therefore are not, approved by the [place] Food and Drug Administration. The tests are used for clinical purposes. Billing Codes Specimen Charges Stain Charges 81061 1 4 1:57 PM [facility] DERMATOPATHOLOGY LABORATORY Embedded Images 4 1:57 PM [facility] DERMATOPATHOLOGY LABORATORY Pathology/Cytolo gy TISSUE SPECIMEN FROM SKIN / Unknown 07/11/2023 11:19 AM CHAIR LIFT OPERATOR 07/11/2023 3:09 PM [facility] Renetta Hopper MD LAB - PATHOLOGY/CYTO LOGY ORDERABLES DERMATOPATHOLOGY LABORATORY [facility] - Department of Dermatology [address], [address] [phone] documented in this encounter Visit Diagnoses Not on filedocumented in this encounter
== END 2024-10-01 11:00 | disposition home or self-care (01) ==
LOC: ANHIMG 11:01
PROVIDERS: PCP Family Medicine; Visit Provider Family Medicine
DX: R05.9 Cough, unspecified (principal)
CPT/HCPCS: 71046

== ENCOUNTER 2025-06-09 13:11 | Outpatient (CLI) | payer MEDICARE, SELFPAY ==
--- NOTE | ~2025-06-09 | DEXA_ITS ---
Bone Density Report Name: JEFFREY THOMAS Age: 69 Sex: Female Ethnicity: White Date of : 1955 Indication: osteopenia; Referring Provider: Shahla Callejas Study: Bone densitometry was performed. Exam Date: June 09, 2025 Accession number: [id number] Bone Density: Region BMD T-score Z-score Classification AP Spine(L1-L4) 0.835 -1.9 0.3 Osteopenia Femoral Neck (Left) 0.731 -1.1 0.8 Osteopenia Total Hip (Left) 0.763 -1.5 0.1 Osteopenia Femoral Neck (Right) 0.759 -0.8 1.1 Normal Total Hip (Right) 0.753 -1.5 0.0 Osteopenia Total Hip Mean 0.758 -1.5 0.1 Osteopenia World Health Organization criteria for BMD impression classify patients as: Normal (T-score at or above -1.0), Osteopenia (T-score between -1.0 and -2.5), or Osteoporosis (T-score at or below -2.5). 10-year Fracture Risk(1): Major Osteoporotic Fracture 9.3% Hip Fracture 1.1% Reported Risk Factors: [place] (), Neck BMD=0.731, BMI=27.4 (1) FRAX(R) Version 3.08. Fracture probability calculated for an untreated patient. Fracture probability may be lower if the patient has received treatment. Previous Exams: -- Region Exam Age BMD T-score BMD Change BMD Change Date g/cm2 vs Baseline vs Previous -- AP Spine (L1-L4) 06/09/2025 69 0.835 -1.9 1.0% 1.0% 06/03/2022 66 0.827 -2.0 Total Hip(Left) 06/09/2025 69 0.763 -1.5 -4.0%* -4.0%* 06/03/2022 66 0.795 -1.2 Total Hip(Right) 06/09/2025 69 0.753 -1.5 -5.6%* -5.6%* 06/03/2022 66 0.798 -1.2 -- *Denotes significance at 95% confidence level, LSC for AP Spine = 0.022 g/cm2, LSC for Total Hip = 0.027 g/cm2 Clinical Information Provided by Patient: Has used the following medications: Evista (i.e. raloxifene), Vitamin D, Calcium Patient maximum height was 62 Menopause Age: 49 No regular weight bearing exercise Drinks caffeinated beverages Onset of menses at age 10 Number of children 2 Impression: The patient has low bone mass, based on the Total Spine T-score. The patient has an estimated ten-year risk of hip fracture of 1.1% and an estimated ten-year risk of major fracture of 9.3%, based on the WHO FRAX algorithm. The BMD for the Total Hip(Left) decreased, changing by -4.0% since the last DXA exam. The BMD for the Total Hip(Right) decreased, changing by -5.6% since the last DXA exam. Discussion: BONE DENSITY IS LOW AT ONE OR MORE SKELETAL SITES. This patient's lowest T-score is low at one or more skeletal sites. It meets the World Health Organization's (WHO) criteria for ?low bone mass? (T-score between -1.0 and -2.5). The patient's 10-year risk of fracture as calculated by FRAX is less than the threshold where pharmacological therapy is recommended by the National Osteoporosis Foundation (NOF). However, all treatment decisions require clinical judgment and consideration of individual patient factors, including patient preferences, comorbidities, previous drug use, risk factors not captured in the FRAX model (e.g., frailty, falls, vitamin D deficiency, increased bone turnover, interval significant decline in bone density) and possible under or overestimation of fracture risk by FRAX. The patient should follow a healthful lifestyle (good nutrition with adequate calcium and vitamin D, and appropriate weight-bearing exercise). Follow-Up: Consider repeating this study in 2 years to reassess this patient's status, or sooner if there is some new clinical indication. Reported by: CHUY on 06/09/2025 1:32:00 PM. Reviewed, dictated and finalized at location A.
== END 2025-06-09 13:12 | disposition home or self-care (01) ==
LOC: MICIMG 13:13
PROVIDERS: PCP Family Medicine; Visit Provider Family Medicine
DX: M85.89 Other specified disorders of bone density and structure, multiple sites (principal)
CPT/HCPCS: 77080